=== PATIENT | male | born 1985 | race Caucasian/White ===

== ENCOUNTER 2017-02-13 16:19 | Inpatient (IN) | payer MEDICAID, OTHER ==
[2017-02-13] MEDS ORDERED: Sodium Chloride 0.9% 1,000 ML IV ONE ×3 (17:04→21:02)
--- NOTE | 2017-02-13 17:30 | C.PDOC ---
History Of Present Illness <Claudine Perrin - Last Filed: 02/13/17 18:11> <Korina Daigleerie - Last Filed: 02/13/17 21:57> A 31 year old male presents to the emergency room with complaints of abdominal pain for 3 days. Patient reports that the pain started when eating something spicy and became worst. Patient reports multiple episodes of vomiting and 1 episode of diarrhea that occurred today. Patient reports that he went to his PMD , who sent him to the ED. Patient denies any chest pain, shortness, of breath, fever, back pain, or any other complaints. (PiloKorinaIliana) <Claudine Perrin - Last Filed: 02/13/17 18:11> History Per: Patient History/Exam Limitations: no limitations Onset/Duration Of Symptoms: Days (3) Current Symptoms Are (Timing): Still Present Context: Food Severity: Mild Location Of Pain/Discomfort: Diffuse Radiation Of Pain To:: None Quality Of Discomfort: "Pain" Associated Symptoms: Vomiting, Diarrhea. denies: Fever, Chest Pain Exacerbating Factors: None Alleviating Factors: None Last Bowel Movement: Today Recent travel outside of the [place]: No <Iliana Daigle - Last Filed: 02/13/17 21:57> Time Seen by Provider: 02/13/17 16:51 Chief Complaint (Nursing): Abdominal Pain Past Medical History Reviewed: Historical Data, Nursing Documentation, Vital Signs Family History: States: Unknown Family Hx - Social History Hx Alcohol Use: No Hx Substance Use: No - Immunization History Hx Tetanus Toxoid Vaccination: No Hx Influenza Vaccination: No Hx Pneumococcal Vaccination: No <Iliana Daigle - Last Filed: 02/13/17 21:57> Vital Signs: Last Vital Signs Temp 97.3 F L 02/13/17 16:39 Pulse 118 H 02/13/17 19:23 Resp 34 H 02/13/17 19:23 BP 121/77 02/13/17 19:23 Pulse Ox 97 02/13/17 21:25 Review Of Systems Except As Marked, All Systems Reviewed And Found Negative. Constitutional: Negative for: Fever Cardiovascular: Negative for: Chest Pain Respiratory: Negative for: Shortness of Breath Gastrointestinal: Positive for: Vomiting, Abdominal Pain, Diarrhea Musculoskeletal: Negative for: Back Pain <Iliana Daigle - Last Filed: 02/13/17 21:57> Physical Exam - Physical Exam Appears: Non-toxic Skin: Pale Head: Atraumatic, Normacephalic Eye(s): bilateral: Normal Inspection Ear(s): Bilateral: Normal Nose: Normal, No Discharge Oral Mucosa: Dry Lips: Other (Whiteish crust on lower lip) Throat: Normal, No Erythema, No Exudate Neck: Normal ROM, Supple Cardiovascular: Rhythm Regular Respiratory: Normal Breath Sounds, No Rales, No Rhonchi, No Wheezing Gastrointestinal/Abdominal: No Soft (Firm), Tenderness (Diffuse tenderness), Guarding, No Rebound Rectal: No Heme Negative (Brown stool) Extremity: Normal ROM, No Tenderness Neurological/Psych: Oriented x3, Normal Speech <Iliana Daigle - Last Filed: 02/13/17 21:57> ED Course And Treatment - Laboratory Results Result Diagrams: 02/13/17 17:51 02/13/17 17:50 <AydinClaudine - Last Filed: 02/13/17 18:11> - Laboratory Results Result Diagrams: 02/13/17 17:51 02/13/17 17:50 O2 Sat by Pulse Oximetry: 97 - Other Rad Abdomen X-ray X-Ray: Interpreted by Me, Viewed By Me Interpretation: Right sided pleural effusion - CT Scan/US CT Abdomen & Pelvis Other Rad Studies (CT/US): Read By Radiologist, Radiology Report Reviewed CT/US Interpretation: CRITICAL RESULT: THIS REPORT CONTAINS FINDINGS THAT MAY BE CRITICAL TO PATIENT CARE. The. findings were verbally communicated via telephone conference with STEFANIE Daigle at 8:51 PM. EDT on 02/13/2017. The findings were acknowledged and understood. Initial Report created on 02/13/2017 8:49 PM Eastern Time ([place] & [place]). EXAM: CT Abdomen and Pelvis With Intravenous Contrast. CLINICAL HISTORY: 31 years old, male; Pain; Abdominal pain; Localized; Right lower quadrant. (rlq); Additional info: Rlq pain, guarding RO perf appy. TECHNIQUE: Axial computed tomography images of the abdomen and pelvis with intravenous. contrast. This CT exam was performed using one or more of the following dose reduction. techniques: automated exposure control, adjustment of the mA and/or kV according to patient size,. and/or use of iterative reconstruction technique. Coronal and sagittal reformatted images were. created and reviewed. CONTRAST: 100 mL of visipaque 320 administered intravenously. COMPARISON: No relevant prior studies available. FINDINGS: Lower thorax: Small right pleural effusion. Infiltrates or atelectasis the lung bases, most prominent in the right lower lobe. ABDOMEN : Liver: Unremarkable. No mass. Gallbladder and bile ducts: Unremarkable. No calcified stones. No ductal dilation. Pancreas: Unremarkable. No mass. No ductal dilation. Spleen: Unremarkable. No splenomegaly. Adrenals: Unremarkable. No mass. Kidneys and ureters: Unremarkable. No solid mass. No hydronephrosis. Stomach and bowel: Dilated small bowel loops in the abdomen with air/contrast levels. No transition. point to suggest mechanical obstruction. Appendix: Mucosal thickening in the dilated appendix which measures 1.6 cm in diameter. There is. free fluid in free air adjacent to the appendix consistent with a ruptured acute appendicitis. PELVIS: Bladder: There is a mild thickening of the bladder wall which may be due to cystitis. Reproductive: Unremarkable as visualized. ABDOMEN and PELVIS: Intraperitoneal space: See above. Bones/joints: No acute fracture. No dislocation. Soft tissues: Unremarkable. Vasculature: Unremarkable. No abdominal aortic aneurysm. Lymph nodes: Unremarkable. No enlarged lymph nodes. IMPRESSION: 1. Mucosal thickening in the dilated appendix which measures 1.6 cm in diameter. There is. free fluid in free air adjacent to the appendix consistent with a ruptured acute appendicitis. 2. Small right pleural effusion. 3. Infiltrates or atelectasis the lung bases, most prominent in the right lower lobe. 4. Dilated small bowel loops in the abdomen with air/contrast levels. No transition point to suggest. mechanical obstruction. This is most likely due to adynamic ileus. 5. There is a mild thickening of the bladder wall which may be due to cystitis. Progress Note: Plan: - EKG - CT Abdomen & Pelvis - Abdomen X-ray - Labs - Zofran , Zosyn, Morphine & Protonix. X-ray was used to rule out perforation. Results showed small pleural effusion. Patient has a rectal temperature of 101.5. Lactic acid was normal. Dr. Perrin spoke with surgical first assistant who requested CT with IV and po contrast. Ct was consistant with the ruptures acute appendicitis. patient will be admitted to the hospitalist service as per surgeon request. Flagyl IV started. - Physician Consult Information Physician Contacted: Chris B Dilip Outcome Of Conversation: Admit to the Hospitalist service, ID consult. <Iliana Daigle - Last Filed: 02/13/17 21:57> Supervising Attending Note - Supervising Attending Note The Documented history was done by the: Physician Hemstitcher The documented physical exam was done by the: Physician Hemstitcher The documented procedures were done by the: Physician Hemstitcher - Attestation: I have personally seen and examined this patient.: Yes I have fully participated in the care of the patient.: Yes I have reviewed all pertinent clinical information: Yes <Claudine Perrin - Last Filed: 02/13/17 18:11> <PiloIliana - Last Filed: 02/13/17 21:57> - Notes: Notes:: ABD PAIN X 3 DAYS. +FEVER REFERRED PMD FOR POSSIBLE RUPTURED APPY. EXAM ABOVE. RO FREE AIR, PREOP, SURG CONSULT (Claudine Perrin) Progress - Data Reviewed Data Reviewed: Lab, Diagnostic imaging, EKG, Old records - Critical Care Citical Care: Excluding Proc Time Critical Care Time: 120 minutes - Continuity of Care Discussed patient case with:: Patient Discussed pt. case with healthcare management consultant/specialty: General Surgery <Claudine Perrin - Last Filed: 02/13/17 18:11> <Korina Daigleerie - Last Filed: 02/13/17 21:57> - Re-Evaluation Re-evaluation Note: 02/13/17 18:13 D/W SURG RESIDENT AWARE OF ER FINDINGS. REQUESTING CT W PO/IV CONTRAST. CT PENDING (Claudine Perrin) Disposition <Claudine Perrin - Last Filed: 02/13/17 18:11> - Disposition Disposition Time: 21:22 <Korina Daigleerie - Last Filed: 02/13/17 21:57> - Disposition Disposition: HOSPITALIZED Condition: GUARDED - Clinical Impression Clinical Impression: Acute appendicitis with rupture <Claudine Perrin - Last Filed: 02/13/17 18:11> - Scribe Statement The provider has reviewed the documentation as recorded by the Scribe <Korina Daigleerie - Last Filed: 02/13/17 21:57> - Scribe Statement Dirk Braswell Provider Scribe Attestation: All medical record entries made by the Scribe were at my direction and personally dictated by me. I have reviewed the chart and agree that the record accurately reflects my personal performance of the history, physical exam, medical decision making, and the department course for this patient. I have also personally directed, reviewed, and agree with the discharge instructions and disposition. (Iliana Daigle) Decision To Admit <Claudine Perrin - Last Filed: 02/13/17 18:11> - Pt Status Changed To: Hospital Disposition Of: Inpatient - Admit Certification Admit to Inpatient:: After my assessment, the patient will require hospitalization for at least two midnights. This is because of the severity of symptoms shown, intensity of services needed, and/or the medical risk in this patient being treated as an outpatient. - InPatient: Physician Admission Certification:: Patient with ruptured appendicitis will need IV antibiotics and surgical treatment. Patient will stay in the hospital for more than 2 days. - . Bed Request Type: Regular Admitting Physician: Avi Gaytan <Iliana Daigle - Last Filed: 02/13/17 21:57> - . Patient Diagnosis: Acute appendicitis with rupture
[2017-02-13 17:44] LABS: BASO % 0.1 % (0.0-2.0); LYMPH # 0.7 K/uL (1.0-4.3); LYMPH % 4.6 % (20.0-40.0); MEAN CORPUSCULAR HEMOGLOBIN 28.4 pg (27.0-31.0); MEAN CORPUSCULAR HGB CONC 33.1 g/dL (33.0-37.0); MEAN PLATELET VOLUME 7.9 fL (7.2-11.7); MONO # 0.8 K/uL (0.0-0.8); MONO % 5.3 % (0.0-10.0); PLATELET COUNT 291 K/uL (130-400); RED CELL DISTRIBUTION WIDTH 13.2 % (11.5-14.5); WHITE BLOOD COUNT 14.1 K/uL (4.8-10.8)
[2017-02-13 17:50] LABS: VENOUS BLOOD GAS BASE EXCESS 1.5 mmol/L (0.0-2.0); VENOUS BLOOD GAS PCO2 49 mmHg (40-60); VENOUS BLOOD PH 7.36 (7.32-7.43)
[2017-02-13 17:52] LABS: CHLORIDE 89 mmol/L (98-107)
[2017-02-13 17:53] LABS: POTASSIUM 4.1 mmol/L (3.6-5.2); SODIUM 131 mmol/L (132-148)
[2017-02-13 17:55] LABS: INR 1.7
[2017-02-13 17:55] LABS: ALB/GLOB RATIO 1.3 (1.0-2.1); ALKALINE PHOSPHATASE 70 U/L (38-126); AST/SGOT 16 U/L (17-59); BLOOD UREA NITROGEN 23 mg/dL (9-20); CARBON DIOXIDE 27 mmol/L (22-30); GFR AFRICAN-AMERICAN > 60; TOTAL PROTEIN 7.3 g/dL (6.3-8.3)
[2017-02-13 17:56] LABS: ALT/SGPT 12 U/L (21-72); CALCIUM 8.9 mg/dl (8.6-10.4); GLUCOSE,RANDOM 143 mg/dL (75-110)
[2017-02-13] MEDS ORDERED: Piperacillin/Tazobact 3.375 gm 100 ML IV STA (18:00)
[2017-02-13] MEDS ORDERED: Iodixanol 320 MG/ML 100 ML BOTTLE IV ONE (18:11)
[2017-02-13] MEDS ORDERED: Iohexol 240 (50 ml) PO ONE (18:12)
[2017-02-13] MEDS ORDERED: Iohexol 240 (50 ml) ONE (18:20)
[2017-02-13] MEDS ORDERED: Sodium Chloride 0.9% 1,000 ML ONE ×3 (18:21→21:36)
[2017-02-13] MEDS ORDERED: Piperacillin/Tazobact 3.375 gm 100 ML IVPB ONE (18:42)
[2017-02-13 18:43] LABS: BASOPHIL 1 % (0-2); METAMYELOCYTE 6 % (0-0); MYELOCYTE 2 % (0-0); NEUTROPHIL 54 % (50-75); TOTAL CELLS COUNTED 100
[2017-02-13 18:56] LABS: RBC URINE 6 /hpf (0-3); URINE BILIRUBIN NEGATIVE (NEGATIVE); URINE BLOOD 1+ (NEGATIVE); URINE COLOR YELLOW (YELLOW); URINE GLUCOSE (UA) NORMAL (Normal); URINE KETONE TRACE mg/dL (NEGATIVE); URINE LEUKOCYTE ESTERASE NEG Leu/uL (Negative); URINE PROTEIN 2+ mg/dL (NEGATIVE); URINE UROBILINOGEN NORMAL mg/dL (0.2-1.0); WBC URINE 4 /hpf (0-5)
[2017-02-13] MEDS ORDERED: Morphine 4 MG/ML VIAL ONE (19:26)
[2017-02-13] MEDS ORDERED: metroNIDAZOLE IV 500 mg/100 ml 100 ML IV STA (21:01)
[2017-02-13] MEDS ORDERED: metroNIDAZOLE IV 500 mg/100 ml 100 ML ONE (21:36)
--- NOTE | 2017-02-13 21:46 | CP.PCM.CON ---
<Nina Vanegas - Last Filed: 02/13/17 21:44> History of Present Illness - History of Present Illness History of Present Illness: Surgery: Dr. Cherry CC: abdominal pain HPI: Patient is a 31 y/o male who presents complaining of RLQ abdominal pain that started on Sunday. Patient states the pain was sharp in nature located in the RLQ and did not radiate. Since Sunday the pain has progressively gotten worse. He report 2 episdoes of vomiting, gastric contents, on Sunday. He reports having fever and chills but did not take temperature. He states he had diarrhea, nonbloody that started Sunday as well. He reports poor appetite associated w/ pain. He denies having symptoms similar in the past. PMH: none PSH: none NKDA Social: denies etoh, tobacco or drug use. Review of Systems - Constitutional Constitutional: Chills, Fever. absent: Headache, Weight Loss - EENT Eyes: absent: Blurred Vision, Change in Vision Ears: absent: Disequilibrium, Dizziness Nose/Mouth/Throat: absent: Nasal Trauma, Nose Pain - Cardiovascular Cardiovascular: Diaphoresis. absent: Chest Pain, Dyspnea - Respiratory Respiratory: absent: Cough, Wheezing - Gastrointestinal Gastrointestinal: Abdominal Pain, Loose Stools, Nausea, Vomiting. absent: Constipation, Hematochezia - Genitourinary Genitourinary: absent: Hematuria, Pyuria - Musculoskeletal Musculoskeletal: absent: Arthralgias, Back Pain - Integumentary Integumentary: absent: Sores, Jaundice - Neurological Neurological: absent: Dizziness, Syncope - Psychiatric Psychiatric: absent: Anxiety, Depression - Endocrine Endocrine: absent: Polydipsia, Polyphagia - Hematologic/Lymphatic Hematologic: absent: Easy Bleeding, Easy Bruising Past Patient History - Infectious Disease Hx of Infectious Diseases: None - Past Social History Smoking Status: Never Smoked - PSYCHIATRIC Hx Substance Use: No - SURGICAL HISTORY Hx Surgeries: No - ANESTHESIA Hx Anesthesia: No Meds Allergies/Adverse Reactions: Allergies Allergy/AdvReac Type Severity Reaction Status Date / Time No Known Allergies Allergy Verified 02/13/17 16:39 - Medications Medications: Current Medications Sodium Chloride (Sodium Chloride 0.9%) 1,000 mls @ 125 mls/hr IV .Q8H ONE Stop: 02/14/17 05:01 Last Admin: 02/13/17 21:42 Dose: 125 mls/hr Physical Exam - Constitutional Appears: Non-toxic, No Acute Distress - Head Exam Head Exam: ATRAUMATIC, NORMOCEPHALIC - Eye Exam Eye Exam: EOMI, Normal appearance - ENT Exam ENT Exam: Mucous Membranes Dry - Respiratory Exam Respiratory Exam: NORMAL BREATHING PATTERN. absent: Respiratory Distress - Cardiovascular Exam Cardiovascular Exam: REGULAR RHYTHM. absent: Tachycardia - GI/Abdominal Exam GI & Abdominal Exam: Firm, Guarding (voluntarily RLQ), Tenderness (RLQ and LLQ, more tender in LLQ ). absent: Distended, Rebound - Extremities Exam Extremities exam: Positive for: normal inspection. Negative for: calf tenderness - Back Exam Back exam: absent: CVA tenderness (L), CVA tenderness (R) - Neurological Exam Neurological exam: Alert, Oriented x3 - Psychiatric Exam Psychiatric exam: Normal Affect, Normal Mood - Skin Skin Exam: Dry, Intact, Normal Color, Warm Results - Vital Signs Recent Vital Signs: Last Vital Signs Temp 97.3 F L 02/13/17 16:39 Pulse 118 H 02/13/17 19:23 Resp 34 H 02/13/17 19:23 BP 121/77 02/13/17 19:23 Pulse Ox 97 02/13/17 21:25 - Labs Result Diagrams: 02/13/17 17:51 02/13/17 17:50 - Impressions Impression: CT scan findings consistent w/ acute perforated appendicitis, localized free fluid and ja-appendiceal air Assessment & Plan - Assessment and Plan (Free Text) Assessment: 31 y/o male w/ acute perforated appendicitis Plan: -IV abx -IV fluids -NPO -Pain control -ID consult -IS use -serial abdominal exams -monitor strict Is and Os -VS Q4hrs -Pepcid/SCDs for prophylaxis -d/w Dr. Cherry AKWhite PGY1 <Chris Cherry - Last Filed: 02/18/17 11:50> Meds - Medications Medications: Current Medications Acetaminophen (Tylenol 325mg Tab) 650 mg PO Q6 PRN PRN Reason: Fever >100.4 F Last Admin: 02/15/17 19:08 Dose: 650 mg Famotidine (Pepcid) 20 mg IVP DAILY [facility] Last Admin: 02/18/17 09:59 Dose: 20 mg Piperacillin Sod/Tazobactam Sod (Zosyn 3.375 Gm Iv Premix) 50 mls @ 100 mls/hr IVPB Q6H [facility] Last Admin: 02/18/17 06:13 Dose: 100 mls/hr Potassium Chloride/Dextrose/Sod Cl (Potassium Chl 40 Meq In D5-1/2ns) 1,000 mls @ 125 mls/hr IV .Q8H [facility] Last Admin: 02/18/17 05:40 Dose: 125 mls/hr Morphine Sulfate (Morphine) 4 mg IVP Q4H PRN PRN Reason: Pain, severe (8-10) Morphine Sulfate (Morphine) 2 mg IVP Q4 PRN PRN Reason: Pain, moderate (4-7) Last Admin: 02/18/17 05:38 Dose: 2 mg Ondansetron HCl (Zofran Inj) 4 mg IVP Q4 PRN PRN Reason: Nausea/Vomiting Potassium Chloride (K-Dur 20 Meq Er Tab) 40 meq PO DAILY [facility] Last Admin: 02/18/17 10:00 Dose: 40 meq Saccharomyces Boulardii (Florastor) 250 mg PO BID [facility] Last Admin: 02/18/17 09:59 Dose: 250 mg Results - Vital Signs Recent Vital Signs: Last Vital Signs Temp 98.6 F 02/18/17 08:03 Pulse 86 02/18/17 08:03 Resp 20 02/18/17 08:03 BP 99/64 L 02/18/17 08:03 Pulse Ox 98 02/18/17 08:03 - Labs Result Diagrams: 02/18/17 06:15 02/18/17 06:15 Labs: Laboratory Results - last 24 hr 02/18/17 06:15 WBC 9.3 RBC 4.12 L Hgb 11.8 L Hct 35.3 MCV 85.8 MCH 28.6 MCHC 33.4 RDW 13.5 Plt Count 315 MPV 7.3 Neut % (Auto) 75.3 H Lymph % (Auto) 12.9 L [place] % (Auto) 10.7 H Eos % (Auto) 0.8 Baso % (Auto) 0.3 Neut # 7.0 Lymph # 1.2 [place] # 1.0 H Eos # 0.1 Baso # 0.0 Sodium 136 Potassium 3.8 Chloride 95 L Carbon Dioxide 28 Anion Gap 16 BUN 4 L Creatinine 0.6 L Est GFR ( Amer) > 60 Est GFR (Non-Af Amer) > 60 Random Glucose 108 Calcium 8.5 L Phosphorus 3.0 Magnesium 2.1 Total Bilirubin 0.4 AST 26 ALT 22 Alkaline Phosphatase 62 Total Protein 6.2 L Albumin 3.1 L Globulin 3.1 Albumin/Globulin Ratio 1.0 Attending/Attestation - Attestation I have personally seen and examined this patient.: Yes I have fully participated in the care of the patient.: Yes I have reviewed all pertinent clinical information: Yes Notes (Text): 02/18/17 11:49 Pt was seen and examined at bedside on 02/13/17 Agree with above note and assessment. Pt with Acute Phlagmoneous Appendicitis with localized perforation and abscess C/w IV abx No need for surgical intervention at present Plan d.w pt in detail Risk and benefit explained in detail.
[2017-02-13] MEDS ORDERED: Lactated Ringer's 1,000 ML IV ONE (21:49)
[2017-02-13] MEDS ORDERED: Morphine 4 MG/ML VIAL IVP PRN (21:50)
[2017-02-13] MEDS ORDERED: Piperacillin/Tazobact 3.375 GM in Sodium Chloride 100 ML IVPB SCH (22:00)
--- NOTE | 2017-02-13 22:44 | CP.PCM.HP ---
<George Hogan - Last Filed: 02/14/17 02:59> History of Present Illness - History of Present Illness History of Present Illness: CC: Chest pain/SOB/RLE pain HPI: Patient is a 31 year old [place] male, who denies PMHx, who was sent up to the ED by his PMD for abdominal pain. He states that the abdominal pain started this past Sunday in the evening. Patient describes the pain as a "constant aching, with occasional knife-like stabs of pain" located "all over his abdomen " but worst in the RLQ, with no radiation to the back. He states the pain began as a mild 2-3/10 on Sunday, but by this morning was a 10/10 on the pain scale. He report one episode of non-bilious, non-bloody vomiting on Sunday, but denies any subsequent episodes despite constant nausea. Pt denies wanting to eat because it worsens his pain, and admits having eaten only a banana and water for the past two days. He admits subjective fever and chills that began Sunday. He states he had one episode non-bloody diarrhea today. He denies previous symptoms. He denies chest pain, palpitations, shortness of breath, headache, dysuria, or constipation. PMHx: denies PSHx: denies Allergies: dneies Fam Hx: father- HTN SHx: denies ever using tobacco products, denies recent alcohol or illicit drug use; lives in [place] with family, currently unemployed PMD: Dr. Marques Present on Admission - Present on Admission Any Indicators Present on Admission: No History of DVT/PE: No History of Uncontrolled Diabetes: No Urinary Catheter: No Decubitus Ulcer Present: No Review of Systems - Constitutional Constitutional: Chills, Fever - EENT Eyes: absent: Blurred Vision Ears: absent: Decreased Hearing - Cardiovascular Cardiovascular: absent: Chest Pain, Chest Pain at Rest, Dyspnea, Dyspnea on Exertion - Respiratory Respiratory: absent: Dyspnea, Dyspnea on Exertion - Gastrointestinal Gastrointestinal: Abdominal Pain (RLQ), Diarrhea (one episode, non-blodoy today) , Nausea, Vomiting (one episode sunday) - Genitourinary Genitourinary: absent: Dysuria - Musculoskeletal Musculoskeletal: absent: Back Pain, Numbness, Tingling - Integumentary Integumentary: absent: Dry Skin, Swelling - Neurological Neurological: absent: Numbness, Tingling, Weakness - Psychiatric Psychiatric: absent: Anxiety, Depression Past Patient History - Infectious Disease Hx of Infectious Diseases: None - Past Social History Smoking Status: Never Smoked - PSYCHIATRIC Hx Substance Use: No - SURGICAL HISTORY Hx Surgeries: No - ANESTHESIA Hx Anesthesia: No Meds Allergies/Adverse Reactions: Allergies Allergy/AdvReac Type Severity Reaction Status Date / Time No Known Allergies Allergy Verified 02/13/17 16:39 Physical Exam - Constitutional Appears: Non-toxic, No Acute Distress - Head Exam Head Exam: ATRAUMATIC, NORMAL INSPECTION, NORMOCEPHALIC - Eye Exam Eye Exam: EOMI Pupil Exam: PERRL - ENT Exam ENT Exam: Mucous Membranes Moist - Neck Exam Neck exam: Positive for: Normal Inspection - Respiratory Exam Respiratory Exam: Clear to Auscultation Bilateral, NORMAL BREATHING PATTERN - Cardiovascular Exam Cardiovascular Exam: REGULAR RHYTHM, +S1, +S2 - GI/Abdominal Exam GI & Abdominal Exam: Firm, Guarding (RLQ), Normal Bowel Sounds, Rebound, Soft, Tenderness (RLQ). absent: Distended - Extremities Exam Extremities exam: Positive for: normal inspection, pedal pulses present. Negative for: pedal edema, tenderness - Back Exam Back exam: absent: CVA tenderness (L), CVA tenderness (R) - Neurological Exam Neurological exam: Alert, CN II-XII Intact, Oriented x3 - Psychiatric Exam Psychiatric exam: Normal Affect, Normal Mood - Skin Skin Exam: Normal Color, Warm Results - Vital Signs Recent Vital Signs: Last Vital Signs Temp 97.9 F 02/13/17 22:26 Pulse 112 H 02/13/17 22:26 Resp 20 02/13/17 22:26 BP 134/79 02/13/17 22:26 Pulse Ox 97 02/13/17 22:26 - Labs Result Diagrams: 02/13/17 17:51 02/13/17 17:50 Assessment & Plan - Assessment and Plan (Free Text) Assessment: 31 yo Male with Perforated Appendicitis Abdominal Pain Diffuse, but worst in RLQ (with guarding, pain at McBurney point) Admit to telemetry NPO diet CT A/P w/ PO/IV (02/13/17): Dilated appendix, free fluid/air adjacent to appendix c/w ruptured acute appendicitis. Small right pleural effusion. Infiltrates/atelectasis in lung bases, most prominent on right. Dilated small bowel loops with air/fluid contrast levels. No transition point appreciated to suggest mechanical obstruction - most likely ileus. (see full report) Abd xray: no acute perforation. Stool occult negative Flagyl 500mg IV ONCE in ED Zosyn 3.375 gm IV Q6H Zofran 4mg IV Q4H NS @ 150 Surgical consult: Dr. Cherry, help appreciated - Morphine 2mg (moderate), 4mg (severe) IV Q4H PRN for pain - Typical course is IV abx, then surgery in 4-6 weeks Infectious disease consult, Dr. Lacey: - Recommend Zosyn 3.375 IV Q6H Sepsis WBC: 14.1 on admission, Tachycardic, Febrile, Tachypnic Source: perforated appendicitis Lactic acid: 2.1 - f/u repeat lactic acid in AM f/u Procalcitonin f/u blood and urine culture Flagyl 500mg IV ONCE in ED Zosyn 3.375 gm IV Q6H Monitor for hypotension -consider ICU if eval if hypotensive Infiltrate/atelectasis CT A/P: Infiltrates/atelectasis in lung bases, most prominent on right. Zosyn 3.375 gm IV Q6H Incentive spirometer Elevated BUN/Creatinine 23/1.1 on admission Pt dehydrated/anorexic for several days before Monitor after hydration Fever Tylenol 325 mg PO Q6h PRN Abnormal UA UA (02/13/17): protein 2+, blood 1+, RBC 6, LE negative, nitrate negative Pt admits dehydration/anorexia recently Repeat UA after hydration Prophylaxis SCDs Pepcid 20mg IV daily <Avi Gaytan - Last Filed: 02/14/17 06:19> Results - Vital Signs Recent Vital Signs: Last Vital Signs Temp 98.8 F 02/14/17 06:00 Pulse 113 H 02/14/17 06:00 Resp 20 02/14/17 06:00 BP 107/60 02/14/17 06:00 Pulse Ox 100 02/14/17 06:00 - Labs Result Diagrams: 02/13/17 17:51 02/13/17 17:50 Assessment & Plan - Date & Time Date: 02/14/17 (I have seen and examined the patient. I agree with the findings and plan of care as documented by Dr. Hogan. Patient with perforated appendicitis. Meets SIRS criteria. Improved heart rate and BP with fluid boluses. Received Zosyn and Flagyl in ED. Consult to ID. Continue Zosyn. Consult to Surgery appreciated. Monitor for acute changes.) Time: 06:17 Attending/Attestation - Attestation I have personally seen and examined this patient.: Yes I have fully participated in the care of the patient.: Yes I have reviewed all pertinent clinical information: Yes
[2017-02-14] MEDS: Piperacill/Tazo 3.375gm in Dex 50 ML IVPB SCH ×4 (00:44→19:06)
[2017-02-14] MEDS ORDERED: Sodium Chloride 0.9% 1,000 ML IV ONE (01:36)
[2017-02-14 06:37] LABS: CHLORIDE 97 mmol/L (98-107)
[2017-02-14 06:38] LABS: SODIUM 138 mmol/L (132-148)
[2017-02-14 06:40] LABS: CARBON DIOXIDE 28 mmol/L (22-30); GFR AFRICAN-AMERICAN > 60
[2017-02-14 06:41] LABS: ALB/GLOB RATIO 1.2 (1.0-2.1); ALKALINE PHOSPHATASE 66 U/L (38-126); ALT/SGPT 17 U/L (21-72); AST/SGOT 16 U/L (17-59); BILIRUBIN,TOTAL 1.2 mg/dL (0.2-1.3); BLOOD UREA NITROGEN 12 mg/dL (9-20); CALCIUM 8.3 mg/dl (8.6-10.4); GLUCOSE,RANDOM 106 mg/dL (75-110); TOTAL PROTEIN 6.1 g/dL (6.3-8.3)
[2017-02-14 07:34] LABS: RBC URINE 3 /hpf (0-3); URINE BACTERIA RARE (<OCC); URINE BILIRUBIN NEGATIVE (NEGATIVE); URINE BLOOD 1+ (NEGATIVE); URINE COLOR Yellow (YELLOW); URINE GLUCOSE (UA) NORMAL (Normal); URINE KETONE TRACE mg/dL (NEGATIVE); URINE LEUKOCYTE ESTERASE NEG Leu/uL (Negative); URINE PROTEIN 1+ mg/dL (NEGATIVE); URINE UROBILINOGEN NORMAL mg/dL (0.2-1.0); WBC URINE 3 /hpf (0-5)
--- NOTE | 2017-02-14 08:43 | CT ---
PROCEDURE: CT Abdomen and Pelvis with contrast HISTORY: Right lower quadrant abdominal pain COMPARISON: None. TECHNIQUE: Axial computed tomographic images of the abdomen and pelvis were performed with intravenous contrast. Subsequently, sagittal and coronal reformatted images were obtained. 100 cc of Visipaque 320 intravenous contrast was administered. Radiation dose: Total exam DLP = 418 mGy-cm. FINDINGS: LOWER THORAX: Small right pleural effusion. Infiltrates or atelectasis at the lung bases, more prominent in the right lower lobe. LIVER: Unremarkable. No gross lesion or ductal dilatation. GALLBLADDER AND BILE DUCTS: Unremarkable. PANCREAS: Unremarkable. No gross lesion or ductal dilatation. SPLEEN: Unremarkable. ADRENALS: Unremarkable. No mass. KIDNEYS AND URETERS: Unremarkable. No hydronephrosis. No solid mass. VASCULATURE: Unremarkable. No aortic aneurysm. BOWEL: Dilated small bowel loops in the abdomen with air contrast levels. No gross transition point to suggest mechanical obstruction. APPENDIX: Mucosal thickening in the dilated appendix which measures 1.6 centimeters in diameter. Free fluid and free air adjacent to the appendix consistent with a ruptured acute appendicitis. PERITONEUM: Unremarkable. No free fluid. No free air. LYMPH NODES: Unremarkable. No enlarged lymph nodes. BLADDER: Mucosal thickening of the urinary bladder wall which may be secondary to a cystitis. REPRODUCTIVE: Unremarkable. BONES: No acute fracture. OTHER FINDINGS: None. IMPRESSION: Mucosal thickening in a dilated appendix which measures 1.6 centimeters in diameter. Free fluid and free air adjacent to the appendix suggestive for a ruptured acute appendicitis. Small right pleural effusion. Infiltrates or atelectasis at the lung bases, more prominent in the right lower lobe. Dilated small bowel loops in the abdomen with air contrast levels. No transition point to suggest mechanical obstruction. This may be secondary to an an adynamic ileus. Mild thickening of the urinary bladder wall which may be secondary to a cystitis. These findings were preliminarily reported at 8:49 p.m. on 02/13/[address] Arcenio Russell from [employer].
--- NOTE | 2017-02-14 09:12 | RAD ---
HISTORY: abdominal pain COMPARISON: No prior. FINDINGS: BOWEL: Mildly dilated small bowel loops central abdomen. Nonspecific. Cannot rule out early obstruction. Please correlate clinically and follow-up advised. No masses or abnormal calcifications. BONES: Normal. OTHER FINDINGS: Small right pleural effusion incidentally noted. IMPRESSION: Mildly dilated small bowel loop in central abdomen. Nonspecific. Followup to rule out mechanical bowel obstruction. Small right pleural effusion.
--- NOTE | 2017-02-14 11:48 | CP.PCM.PN ---
<PisanoMamadou tilley - Last Filed: 02/14/17 11:57> Subjective - Date & Time of Evaluation Date of Evaluation: 02/14/17 Time of Evaluation: 08:30 - Subjective Subjective: General Surgery Pt S&E, NAEO. Febrile to 101.2 at 2 am. States his pain has greatly improved. No other C/O. Objective - Vital Signs/Intake and Output Vital Signs (last 24 hours): Temp Pulse Resp BP Pulse Ox 100.1 F H 123 H 20 107/57 L 100 02/14/17 10:41 02/14/17 10:41 02/14/17 10:41 02/14/17 10:41 02/14/17 10:41 Intake and Output: 02/14/17 02/14/17 06:59 18:59 Intake Total 1150 Output Total 700 Balance 450 - Medications Medications: Current Medications Acetaminophen (Tylenol 325mg Tab) 650 mg PO Q6 PRN PRN Reason: Fever >100.4 F Last Admin: 02/14/17 00:59 Dose: 650 mg Famotidine (Pepcid) 20 mg IVP DAILY [facility] Last Admin: 02/14/17 10:42 Dose: 20 mg Piperacillin Sod/Tazobactam Sod (Zosyn 3.375 Gm Iv Premix) 50 mls @ 100 mls/hr IVPB Q6H [facility] Last Admin: 02/14/17 06:07 Dose: 100 mls/hr Influenza Virus Vaccine (Afluria) 45 mcg IM .ONCE ONE Stop: 02/15/17 10:01 Morphine Sulfate (Morphine) 4 mg IVP Q4H PRN PRN Reason: Pain, severe (8-10) Morphine Sulfate (Morphine) 2 mg IVP Q4 PRN PRN Reason: Pain, moderate (4-7) Last Admin: 02/14/17 10:43 Dose: 2 mg Ondansetron HCl (Zofran Inj) 4 mg IVP Q4 PRN PRN Reason: Nausea/Vomiting Pneumococcal Polyvalent Vaccine (Pneumovax 23 Vaccine) 0.5 ml IM .ONCE ONE Stop: 02/15/17 10:01 - Labs Labs: 02/14/17 06:12 PT 19.7 SECONDS (9.7-12.2) H 02/13/17 17:56 INR 1.7 02/13/17 17:56 APTT 30 SECONDS (21-34) 02/13/17 17:56 - Constitutional Appears: Well, No Acute Distress - Head Exam Head Exam: ATRAUMATIC, NORMOCEPHALIC - Eye Exam Eye Exam: EOMI. absent: Scleral icterus - Respiratory Exam Respiratory Exam: Clear to Ausculation Bilateral, NORMAL BREATHING PATTERN. absent: Accessory Muscle Use - Cardiovascular Exam Cardiovascular Exam: Tachycardia, REGULAR RHYTHM, +S1, +S2 - GI/Abdominal Exam GI & Abdominal Exam: Soft, Tenderness (most in RLQ). absent: Distended, Firm, Guarding, Rigid, Rebound - Neurological Exam Neurological Exam: Alert, Awake - Skin Skin Exam: Dry, Intact, Warm Assessment and Plan - Assessment and Plan (Free Text) Assessment: 31M with perforated appendicitis Plan: - Continue IV abx -F/U ID consult No immediate surgery planned. Will need interval appendectomy. Will D/W Dr. Cherry. PGY3 <Chris Cherry - Last Filed: 02/18/17 11:53> Objective - Vital Signs/Intake and Output Vital Signs (last 24 hours): Temp Pulse Resp BP Pulse Ox 98.6 F 86 20 99/64 L 98 02/18/17 08:03 02/18/17 08:03 02/18/17 08:03 02/18/17 08:03 02/18/17 08:03 Intake and Output: 02/18/17 02/18/17 06:59 18:59 Intake Total 2675 Output Total 1 Balance 2674 - Medications Medications: Current Medications Acetaminophen (Tylenol 325mg Tab) 650 mg PO Q6 PRN PRN Reason: Fever >100.4 F Last Admin: 02/15/17 19:08 Dose: 650 mg Famotidine (Pepcid) 20 mg IVP DAILY [facility] Last Admin: 02/18/17 09:59 Dose: 20 mg Piperacillin Sod/Tazobactam Sod (Zosyn 3.375 Gm Iv Premix) 50 mls @ 100 mls/hr IVPB Q6H [facility] Last Admin: 02/18/17 06:13 Dose: 100 mls/hr Potassium Chloride/Dextrose/Sod Cl (Potassium Chl 40 Meq In D5-1/2ns) 1,000 mls @ 125 mls/hr IV .Q8H [facility] Last Admin: 02/18/17 05:40 Dose: 125 mls/hr Morphine Sulfate (Morphine) 4 mg IVP Q4H PRN PRN Reason: Pain, severe (8-10) Morphine Sulfate (Morphine) 2 mg IVP Q4 PRN PRN Reason: Pain, moderate (4-7) Last Admin: 02/18/17 05:38 Dose: 2 mg Ondansetron HCl (Zofran Inj) 4 mg IVP Q4 PRN PRN Reason: Nausea/Vomiting Potassium Chloride (K-Dur 20 Meq Er Tab) 40 meq PO DAILY [facility] Last Admin: 02/18/17 10:00 Dose: 40 meq Saccharomyces Boulardii (Florastor) 250 mg PO BID [facility] Last Admin: 02/18/17 09:59 Dose: 250 mg - Labs Labs: 02/18/17 06:15 02/18/17 06:15 PT 19.7 SECONDS (9.7-12.2) H 02/13/17 17:56 INR 1.7 02/13/17 17:56 APTT 30 SECONDS (21-34) 02/13/17 17:56 Attending/Attestation - Attestation I have personally seen and examined this patient.: Yes I have fully participated in the care of the patient.: Yes I have reviewed all pertinent clinical information, including history, physical exam and plan: Yes Notes (Text): 02/18/17 11:52 Pt was seen and examined at bedside on 02/14/17 Agree with above note and assessment. Pt is same clinically C/w IV abx Will need CT scan if continue to spike temp. Plan d.w pt in detail.
--- NOTE | 2017-02-14 12:40 | CP.PCM.PN ---
<Keon Harding - Last Filed: 02/14/17 12:31> Subjective - Date & Time of Evaluation Date of Evaluation: 02/14/17 Time of Evaluation: 12:31 - Subjective Subjective: PGY-1 note for medicine service Pt seen and examined at bedside. Pt complains of persistent pain in the RLQ. He also states that he had fevers and chills overnight. Denies chest pain, sob, nausea or vomiting. Objective - Vital Signs/Intake and Output Vital Signs (last 24 hours): Temp Pulse Resp BP Pulse Ox 100.1 F H 123 H 20 107/57 L 100 02/14/17 10:41 02/14/17 10:41 02/14/17 10:41 02/14/17 10:41 02/14/17 10:41 Intake and Output: 02/14/17 02/14/17 06:59 18:59 Intake Total 1150 Output Total 700 Balance 450 - Medications Medications: Current Medications Acetaminophen (Tylenol 325mg Tab) 650 mg PO Q6 PRN PRN Reason: Fever >100.4 F Last Admin: 02/14/17 00:59 Dose: 650 mg Famotidine (Pepcid) 20 mg IVP DAILY [facility] Last Admin: 02/14/17 10:42 Dose: 20 mg Piperacillin Sod/Tazobactam Sod (Zosyn 3.375 Gm Iv Premix) 50 mls @ 100 mls/hr IVPB Q6H [facility] Last Admin: 02/14/17 06:07 Dose: 100 mls/hr Influenza Virus Vaccine (Afluria) 45 mcg IM .ONCE ONE Stop: 02/15/17 10:01 Morphine Sulfate (Morphine) 4 mg IVP Q4H PRN PRN Reason: Pain, severe (8-10) Morphine Sulfate (Morphine) 2 mg IVP Q4 PRN PRN Reason: Pain, moderate (4-7) Last Admin: 02/14/17 10:43 Dose: 2 mg Ondansetron HCl (Zofran Inj) 4 mg IVP Q4 PRN PRN Reason: Nausea/Vomiting Pneumococcal Polyvalent Vaccine (Pneumovax 23 Vaccine) 0.5 ml IM .ONCE ONE Stop: 02/15/17 10:01 - Labs Labs: 02/14/17 06:12 PT 19.7 SECONDS (9.7-12.2) H 02/13/17 17:56 INR 1.7 02/13/17 17:56 APTT 30 SECONDS (21-34) 02/13/17 17:56 - Constitutional Appears: Non-toxic - Head Exam Head Exam: ATRAUMATIC, NORMOCEPHALIC - Eye Exam Eye Exam: Normal appearance - Respiratory Exam Respiratory Exam: Clear to Ausculation Bilateral, NORMAL BREATHING PATTERN - Cardiovascular Exam Cardiovascular Exam: Tachycardia, +S1, +S2 - GI/Abdominal Exam GI & Abdominal Exam: Soft, Tenderness (RLQ), Normal Bowel Sounds - Neurological Exam Neurological Exam: Alert, Awake - Skin Skin Exam: Dry, Warm Assessment and Plan - Assessment and Plan (Free Text) Assessment: Abdominal Pain - Secondary to acute perforated appendix - CT A/P w/ PO/IV (02/13/17): Dilated appendix, free fluid/air adjacent to appendix c/w ruptured acute appendicitis. Small right pleural effusion. Infiltrates/atelectasis in lung bases, most prominent on right. Dilated small bowel loops with air/fluid contrast levels. No transition point appreciated to suggest mechanical obstruction - most likely ileus. (see full report) - Abd xray: no acute perforation. - NPO diet - Surgical consult: Dr. Cherry, help appreciated - Morphine 2mg (moderate), 4mg (severe) IV Q4H PRN for pain - No immediate surgery, will need interval appendectomy - Infectious disease consult, Dr. Lacey: - Recommend Zosyn 3.375 IV Q6H - Flagyl 500mg IV ONCE in ED - Zosyn 3.375 gm IV Q6H - Zofran 4mg IV Q4H - NS @ 150 Sepsis - Febrile and tachycardic overnight and in AM - WBC: 14.1 on admission, Tachycardic, Febrile, Tachypnic - Source: perforated appendicitis - Lactic acid: 2.1 -> 1.3 - Procalcitonin - 16 - f/u blood and urine culture - Abx as above Monitor for hypotension -consider ICU if eval if hypotensive Infiltrate/atelectasis - CT A/P: Infiltrates/atelectasis in lung bases, most prominent on right. - Zosyn 3.375 gm IV Q6H - Incentive spirometer Elevated BUN/Creatinine - resolved - 23/1.1 on admission - resolved - Pt dehydrated/anorexic for several days before - Monitor after hydration Fever - Tylenol 325 mg PO Q6h PRN Abnormal UA - UA (02/13/17): protein 2+, blood 1+, RBC 6, LE negative, nitrate negative - Pt admits dehydration/anorexia recently Prophylaxis - SCDs - Pepcid 20mg IV daily <Tha Marvin - Last Filed: 02/14/17 18:27> Objective - Vital Signs/Intake and Output Vital Signs (last 24 hours): Temp Pulse Resp BP Pulse Ox 99.6 F 109 H 20 107/62 98 02/14/17 15:13 02/14/17 15:13 02/14/17 15:13 02/14/17 15:13 02/14/17 15:13 Intake and Output: 02/14/17 02/14/17 06:59 18:59 Intake Total 1150 1200 Output Total 700 800 Balance 450 400 - Medications Medications: Current Medications Acetaminophen (Tylenol 325mg Tab) 650 mg PO Q6 PRN PRN Reason: Fever >100.4 F Last Admin: 02/14/17 12:34 Dose: 650 mg Famotidine (Pepcid) 20 mg IVP DAILY [facility] Last Admin: 02/14/17 10:42 Dose: 20 mg Piperacillin Sod/Tazobactam Sod (Zosyn 3.375 Gm Iv Premix) 50 mls @ 100 mls/hr IVPB Q6H [facility] Last Admin: 02/14/17 12:36 Dose: 100 mls/hr Sodium Chloride (Sodium Chloride 0.9%) 1,000 mls @ 125 mls/hr IV .Q8H [facility] Last Admin: 02/14/17 17:30 Dose: 125 mls/hr Influenza Virus Vaccine (Afluria) 45 mcg IM .ONCE ONE Stop: 02/15/17 10:01 Morphine Sulfate (Morphine) 4 mg IVP Q4H PRN PRN Reason: Pain, severe (8-10) Morphine Sulfate (Morphine) 2 mg IVP Q4 PRN PRN Reason: Pain, moderate (4-7) Last Admin: 02/14/17 10:43 Dose: 2 mg Ondansetron HCl (Zofran Inj) 4 mg IVP Q4 PRN PRN Reason: Nausea/Vomiting Pneumococcal Polyvalent Vaccine (Pneumovax 23 Vaccine) 0.5 ml IM .ONCE ONE Stop: 02/15/17 10:01 - Labs Labs: 02/14/17 06:12 PT 19.7 SECONDS (9.7-12.2) H 02/13/17 17:56 INR 1.7 02/13/17 17:56 APTT 30 SECONDS (21-34) 02/13/17 17:56 Attending/Attestation - Attestation I have personally seen and examined this patient.: Yes I have fully participated in the care of the patient.: Yes I have reviewed all pertinent clinical information, including history, physical exam and plan: Yes Notes (Text): 02/14/17 18:26 Patient was seen and examined at bedside with the resident Abdominal pain has improved Surgical evaluation seen and appreciated No plan for immediate surgery We will continue IV antibiotics ID consultation has been requested Patient will need interval appendectomy as per surgery.
[2017-02-14] MEDS: Sodium Chloride 0.9% 1,000 ML IV SCH ×2 (17:30→22:55)
--- NOTE | 2017-02-14 17:49 | CP.PCM.CON ---
History of Present Illness - History of Present Illness History of Present Illness: 31 yo male admitted with possible ruptured appendix c/o RLQ abd pain x 3-4 days appears weak and uncomfortable but NAD denies any other symptoms Review of Systems - Constitutional Constitutional: As Per HPI, Anorexia, Fever, Malaise - EENT Eyes: absent: As Per HPI, Blind Spots, Blurred Vision, Change in Vision, Decreased Night Vision, Diplopia, Discharge, Dry Eye, Exophthalmos, Floaters, Irritation, Itchy Eyes, Loss of Peripheral Vision, Pain, Photophobia, Requires Corrective Lenses, Sees Flashes, Spots in Vision, Tunnel Vision, Other Visual Disturbances, Loss of Vision, Other Ears: absent: As Per HPI, Decreased Hearing, Ear Discharge, Ear Pain, Tinnitus, Abnormal Hearing, Disequilibrium, Dizziness, Other Nose/Mouth/Throat: absent: As Per HPI, Epistaxis, Nasal Congestion, Nasal Discharge, Nasal Obstruction, Nasal Trauma, Nose Pain, Post Nasal Drip, Sinus Pain, Sinus Pressure, Bleeding Gums, Change in Voice, Dental Pain, Dry Mouth, Dysphagia, Halitosis, Hoarsness, Lip Swelling, Mouth Lesions, Mouth Pain, Odynophagia, Sore Throat, Throat Swelling, Tongue Swelling, Facial Pain, Neck Pain, Neck Mass, Other - Cardiovascular Cardiovascular: absent: As Per HPI, Acrocyanosis, Chest Pain, Chest Pain at Rest , Chest Pain with Activity, Claudication, Diaphoresis, Dyspnea, Dyspnea on Exertion, Edema, Irregular Heart Rhythm, Pain Radiating to Arm/Neck/Jaw, Leg Edema, Leg Ulcers, Lightheadedness, Orthopnea, Palpitations, Paroxysmal Nocturnal Dyspnea, Pedal Edema, Radiating Pain, Rapid Heart Rate, Slow Heart Rate, Syncope, Other - Respiratory Respiratory: absent: As Per HPI, Cough, Dyspnea, Hemoptysis, Dyspnea on Exertion , Wheezing, Snoring, Stridor, Pain on Inspiration, Chest Congestion, Excessive Mucous Production, Change in Mucous Color, Pain with Coughing, Other - Gastrointestinal Gastrointestinal: As Per HPI - Genitourinary Genitourinary: absent: As Per HPI, Change in Urinary Stream, Difficulty Urinating, Dysuria, Flank Pain, Hematuria, Pyuria, Nocturia, Urinary Incontinence, Urinary Frequency, Urinary Hesitance, Urinary Urgency, Voiding Freq/Small Amts, Freq UTI, Hx Renal/Bladder Calculi, Hx /Renal Surgery, Bladder Distension, Other - Musculoskeletal Musculoskeletal: absent: As Per HPI, Abnormal Gait, Arthralgias, Atrophy, Back Pain, Deformity, Joint Swelling, Limited Range of Motion, Loss of Height, Muscle Cramps, Muscle Weakness, Myalgias, Neck Pain, Numbness, Radiating Pain into Limb, Stiffness, Tingling, Other - Integumentary Integumentary: absent: As Per HPI, Acne, Alopecia, Bleeding Lesions, Change in Hair, Change in Nails, Change in Pigmentation, Changing Lesions, Dry Skin, Erythema, Furuncle, Hirsutism, Lesions, New Lesions, Non-Healing Lesions, Photosensitivity, Pruritus, Rash, Skin Pain, Skin Ulcer, Sores, Striae, Swelling , Unusual Bruising, Wounds, Jaundice, Other - Neurological Neurological: absent: As Per HPI, Abnormal Gait, Abnormal Hearing, Abnormal Movements, Abnormal Speech, Behavioral Changes, Burning Sensations, Confusion, Convulsions, Disequilibrium, Dizziness, Numbness, Focal Weakness, Frequent Falls , Headaches, Lack of Coordination, Loss of Vision, Memory Loss, Paresthesias, Radicular Pain, Restless Legs, Sensory Deficit, Syncope, Tingling, Tremor, Vertigo, Weakness, Other Visual Disturbances, Other - Psychiatric Psychiatric: absent: As Per HPI, Abnormal Sleep Pattern, Anhedonia, Anxiety, Auditory Hallucinations, Behavioral Changes, Change in Appetite, Change in Libido, Confusion, Depression, Difficulty Concentrating, Hallucinations, Homicidal Ideation, Hopelessness, Irritability, Memory Loss, Mood Swings, Panic Attacks, Paranoia, Suicidal Ideation, Visual Hallucinations, Tactile Hallucinations, Other - Endocrine Endocrine: absent: As Per HPI, Change in Body Appearance, Change in Libido, Cold Intolorance, Deepening of Voice, Excessive Sweating, Fatigue, Flushing, Heat Intolorance, Increase in Ring/Shoe/Hat Size, Palpitations, Polydipsia, Polyphagia, Polyuria, Other - Hematologic/Lymphatic Hematologic: absent: As Per HPI, Easy Bleeding, Easy Bruising, Lymphadenopathy, Other Past Patient History - Infectious Disease Hx of Infectious Diseases: None - Past Medical History & Family History Past Medical History?: Yes - Past Social History Smoking Status: Never Smoked - CARDIAC Hx Cardiac Disorders: No - PULMONARY Hx Respiratory Disorders: No - NEUROLOGICAL Hx Neurological Disorder: No - HEENT Hx HEENT Problems: No - RENAL Hx Chronic Kidney Disease: No - ENDOCRINE/METABOLIC Hx Endocrine Disorders: No - HEMATOLOGICAL/ONCOLOGICAL Hx Blood Disorders: No - INTEGUMENTARY Hx Dermatological Problems: No - MUSCULOSKELETAL/RHEUMATOLOGICAL Hx Musculoskeletal Disorders: No Hx Falls: No - GASTROINTESTINAL Hx Gastrointestinal Disorders: No - GENITOURINARY/GYNECOLOGICAL Hx Genitourinary Disorders: No - PSYCHIATRIC Hx Substance Use: No - SURGICAL HISTORY Hx Surgeries: No - ANESTHESIA Hx Anesthesia: No Meds Allergies/Adverse Reactions: Allergies Allergy/AdvReac Type Severity Reaction Status Date / Time No Known Allergies Allergy Verified 02/13/17 16:39 - Medications Medications: Current Medications Acetaminophen (Tylenol 325mg Tab) 650 mg PO Q6 PRN PRN Reason: Fever >100.4 F Last Admin: 02/14/17 12:34 Dose: 650 mg Famotidine (Pepcid) 20 mg IVP DAILY [facility] Last Admin: 02/14/17 10:42 Dose: 20 mg Piperacillin Sod/Tazobactam Sod (Zosyn 3.375 Gm Iv Premix) 50 mls @ 100 mls/hr IVPB Q6H [facility] Last Admin: 02/14/17 12:36 Dose: 100 mls/hr Sodium Chloride (Sodium Chloride 0.9%) 1,000 mls @ 125 mls/hr IV .Q8H [facility] Last Admin: 02/14/17 17:30 Dose: 125 mls/hr Influenza Virus Vaccine (Afluria) 45 mcg IM .ONCE ONE Stop: 02/15/17 10:01 Morphine Sulfate (Morphine) 4 mg IVP Q4H PRN PRN Reason: Pain, severe (8-10) Morphine Sulfate (Morphine) 2 mg IVP Q4 PRN PRN Reason: Pain, moderate (4-7) Last Admin: 02/14/17 10:43 Dose: 2 mg Ondansetron HCl (Zofran Inj) 4 mg IVP Q4 PRN PRN Reason: Nausea/Vomiting Pneumococcal Polyvalent Vaccine (Pneumovax 23 Vaccine) 0.5 ml IM .ONCE ONE Stop: 02/15/17 10:01 Physical Exam - Constitutional Appears: Toxic, No Acute Distress - Head Exam Head Exam: ATRAUMATIC, NORMAL INSPECTION, NORMOCEPHALIC - Eye Exam Eye Exam: PERRL. absent: Scleral icterus - ENT Exam ENT Exam: Mucous Membranes Dry, Normal External Ear Exam, Normal Oropharynx - Neck Exam Neck exam: Negative for: Lymphadenopathy, Thyromegaly - Respiratory Exam Respiratory Exam: Decreased Breath Sounds, Clear to Auscultation Bilateral - Cardiovascular Exam Cardiovascular Exam: Tachycardia, REGULAR RHYTHM, +S1, +S2 - GI/Abdominal Exam GI & Abdominal Exam: Diminished Bowel Sounds, Firm, Guarding, Rebound, Soft, Tenderness. absent: Hernia, Organomegaly, Pulsatile Mass, Rigid - Rectal Exam Rectal Exam: Deferred - Exam Exam: NORMAL INSPECTION - Extremities Exam Extremities exam: Positive for: pedal pulses present. Negative for: calf tenderness, pedal edema, tenderness - Back Exam Back exam: absent: CVA tenderness (L), CVA tenderness (R), paraspinal tenderness - Neurological Exam Neurological exam: Alert, CN II-XII Intact, Oriented x3, Reflexes Normal - Psychiatric Exam Psychiatric exam: Depressed - Skin Skin Exam: Dry Results - Vital Signs Recent Vital Signs: Last Vital Signs Temp 99.6 F 02/14/17 15:13 Pulse 109 H 02/14/17 15:13 Resp 20 02/14/17 15:13 BP 107/62 02/14/17 15:13 Pulse Ox 98 02/14/17 15:13 - Labs Result Diagrams: 02/13/17 17:51 02/14/17 06:12 Labs: Laboratory Results - last 24 hr 02/14/17 02/14/17 02/14/17 06:12 07:19 Unknown Sodium 138 Potassium 4.0 Chloride 97 L Carbon Dioxide 28 Anion Gap 18 BUN 12 Creatinine 0.8 Est GFR ( Amer) > 60 Est GFR (Non-Af Amer) > 60 Random Glucose 106 Lactic Acid 1.3 Calcium 8.3 L Total Bilirubin 1.2 AST 16 L ALT 17 L D Alkaline Phosphatase 66 Total Protein 6.1 L Albumin 3.3 L Globulin 2.8 Albumin/Globulin Ratio 1.2 Procalcitonin 16.00 H Urine Color Yellow Urine Clarity Clear Urine pH 5.0 Ur Specific Mcgrath 1.024 Urine Protein 1+ H Urine Glucose (UA) Normal Urine Ketones Trace Urine Blood 1+ H Urine Nitrate Negative Urine Bilirubin Negative Urine Urobilinogen Normal Ur Leukocyte Esterase Neg Urine WBC (Auto) 3 Urine RBC (Auto) 3 Urine Bacteria Rare Assessment & Plan (1) Acute appendicitis with rupture Status: Acute - Assessment and Plan (Free Text) Assessment: cont iv antibiotics consider OR / appendectomy
[2017-02-15] MEDS: Piperacill/Tazo 3.375gm in Dex 50 ML IVPB SCH ×4 (00:18→19:10)
[2017-02-15] MEDS: Sodium Chloride 0.9% 1,000 ML IV SCH ×3 (01:00→20:31)
[2017-02-15 06:25] LABS: BASO % 0.2 % (0.0-2.0); EOS % 0.3 % (0.0-4.0); HEMATOCRIT 30.1 % (35.0-51.0); LYMPH # 0.7 K/uL (1.0-4.3); LYMPH % 8.8 % (20.0-40.0); MEAN CELL VOLUME 86.5 fL (80.0-94.0); MEAN CORPUSCULAR HEMOGLOBIN 29.7 pg (27.0-31.0); MEAN CORPUSCULAR HGB CONC 34.3 g/dL (33.0-37.0); MEAN PLATELET VOLUME 7.5 fL (7.2-11.7); MONO # 0.4 K/uL (0.0-0.8); MONO % 5.8 % (0.0-10.0); PLATELET COUNT 187 K/uL (130-400); RED CELL DISTRIBUTION WIDTH 13.4 % (11.5-14.5); WHITE BLOOD COUNT 7.4 K/uL (4.8-10.8)
[2017-02-15 06:48] LABS: CHLORIDE 100 mmol/L (98-107)
[2017-02-15 06:49] LABS: POTASSIUM 3.6 mmol/L (3.6-5.2); SODIUM 141 mmol/L (132-148)
[2017-02-15 06:51] LABS: ALB/GLOB RATIO 1.1 (1.0-2.1); ALKALINE PHOSPHATASE 53 U/L (38-126); AST/SGOT 13 U/L (17-59); BILIRUBIN,TOTAL 0.9 mg/dL (0.2-1.3); BLOOD UREA NITROGEN 14 mg/dL (9-20); CARBON DIOXIDE 28 mmol/L (22-30); GFR AFRICAN-AMERICAN > 60; GLUCOSE,RANDOM 91 mg/dL (75-110); TOTAL PROTEIN 5.4 g/dL (6.3-8.3)
[2017-02-15 06:52] LABS: ALT/SGPT 17 U/L (21-72); CALCIUM 7.8 mg/dl (8.6-10.4)
--- NOTE | 2017-02-15 08:27 | CP.PCM.PN ---
<Edson VanegasErrol - Last Filed: 02/15/17 08:24> Subjective - Date & Time of Evaluation Date of Evaluation: 02/15/17 Time of Evaluation: 08:24 - Subjective Subjective: Surgery: Dr. Cherry Patient continues to improved. Pain no isolated to RLQ and much better than admission. He reports fever yesterday but none today. He remains NPO. denies n/ v. Reports diarrhea nonbloody. He states he wants to drink fluids. Objective - Vital Signs/Intake and Output Vital Signs (last 24 hours): Temp Pulse Resp BP Pulse Ox 98.4 F 99 H 20 95/59 L 97 02/15/17 07:10 02/15/17 07:10 02/15/17 07:10 02/15/17 07:10 02/15/17 07:10 Intake and Output: 02/15/17 02/15/17 06:59 18:59 Intake Total 2157.5 Output Total 2 Balance 2155.5 - Medications Medications: Current Medications Acetaminophen (Tylenol 325mg Tab) 650 mg PO Q6 PRN PRN Reason: Fever >100.4 F Last Admin: 02/14/17 22:15 Dose: 650 mg Famotidine (Pepcid) 20 mg IVP DAILY [facility] Last Admin: 02/14/17 10:42 Dose: 20 mg Piperacillin Sod/Tazobactam Sod (Zosyn 3.375 Gm Iv Premix) 50 mls @ 100 mls/hr IVPB Q6H [facility] Last Admin: 02/15/17 06:45 Dose: 100 mls/hr Sodium Chloride (Sodium Chloride 0.9%) 1,000 mls @ 125 mls/hr IV .Q8H [facility] Last Admin: 02/15/17 01:00 Dose: Not Given Influenza Virus Vaccine (Afluria) 45 mcg IM .ONCE ONE Stop: 02/15/17 10:01 Morphine Sulfate (Morphine) 4 mg IVP Q4H PRN PRN Reason: Pain, severe (8-10) Morphine Sulfate (Morphine) 2 mg IVP Q4 PRN PRN Reason: Pain, moderate (4-7) Last Admin: 02/14/17 10:43 Dose: 2 mg Ondansetron HCl (Zofran Inj) 4 mg IVP Q4 PRN PRN Reason: Nausea/Vomiting Pneumococcal Polyvalent Vaccine (Pneumovax 23 Vaccine) 0.5 ml IM .ONCE ONE Stop: 02/15/17 10:01 - Labs Labs: 02/15/17 06:06 02/15/17 06:06 PT 19.7 SECONDS (9.7-12.2) H 02/13/17 17:56 INR 1.7 02/13/17 17:56 APTT 30 SECONDS (21-34) 02/13/17 17:56 - Constitutional Appears: Well, Non-toxic, No Acute Distress - Head Exam Head Exam: ATRAUMATIC, NORMOCEPHALIC - Eye Exam Eye Exam: EOMI, Normal appearance - ENT Exam ENT Exam: Mucous Membranes Dry - Respiratory Exam Respiratory Exam: NORMAL BREATHING PATTERN. absent: Respiratory Distress - Cardiovascular Exam Cardiovascular Exam: REGULAR RHYTHM. absent: Tachycardia - GI/Abdominal Exam GI & Abdominal Exam: Soft, Tenderness (RLQ w/ deep palpation ). absent: Distended, Guarding, Rigid, Rebound - Extremities Exam Extremities Exam: Normal Inspection. absent: Calf Tenderness - Neurological Exam Neurological Exam: Alert, Awake, Oriented x3 - Psychiatric Exam Psychiatric exam: Normal Affect, Normal Mood - Skin Skin Exam: Dry, Normal Color, Warm Assessment and Plan - Assessment and Plan (Free Text) Assessment: 31 y/o male w/ perforated appendicitis Plan: -cont antibiotics for now -possible trial of liquids today -patient is improving -cont Zosyn -pain control -may consider repeat imaging in next few days for comparison -further recs per Dr. Cherry AKite PGY1 <Chris Cherry - Last Filed: 02/18/17 11:57> Objective - Vital Signs/Intake and Output Vital Signs (last 24 hours): Temp Pulse Resp BP Pulse Ox 98.6 F 86 20 99/64 L 98 02/18/17 08:03 02/18/17 08:03 02/18/17 08:03 02/18/17 08:03 02/18/17 08:03 Intake and Output: 02/18/17 02/18/17 06:59 18:59 Intake Total 2675 Output Total 1 Balance 2674 - Medications Medications: Current Medications Acetaminophen (Tylenol 325mg Tab) 650 mg PO Q6 PRN PRN Reason: Fever >100.4 F Last Admin: 02/15/17 19:08 Dose: 650 mg Famotidine (Pepcid) 20 mg IVP DAILY [facility] Last Admin: 02/18/17 09:59 Dose: 20 mg Piperacillin Sod/Tazobactam Sod (Zosyn 3.375 Gm Iv Premix) 50 mls @ 100 mls/hr IVPB Q6H [facility] Last Admin: 02/18/17 06:13 Dose: 100 mls/hr Potassium Chloride/Dextrose/Sod Cl (Potassium Chl 40 Meq In D5-1/2ns) 1,000 mls @ 125 mls/hr IV .Q8H [facility] Last Admin: 02/18/17 05:40 Dose: 125 mls/hr Morphine Sulfate (Morphine) 4 mg IVP Q4H PRN PRN Reason: Pain, severe (8-10) Morphine Sulfate (Morphine) 2 mg IVP Q4 PRN PRN Reason: Pain, moderate (4-7) Last Admin: 02/18/17 05:38 Dose: 2 mg Ondansetron HCl (Zofran Inj) 4 mg IVP Q4 PRN PRN Reason: Nausea/Vomiting Potassium Chloride (K-Dur 20 Meq Er Tab) 40 meq PO DAILY [facility] Last Admin: 02/18/17 10:00 Dose: 40 meq Saccharomyces Boulardii (Florastor) 250 mg PO BID [facility] Last Admin: 02/18/17 09:59 Dose: 250 mg - Labs Labs: 02/18/17 06:15 02/18/17 06:15 PT 19.7 SECONDS (9.7-12.2) H 02/13/17 17:56 INR 1.7 02/13/17 17:56 APTT 30 SECONDS (21-34) 02/13/17 17:56 Attending/Attestation - Attestation I have personally seen and examined this patient.: Yes I have fully participated in the care of the patient.: Yes I have reviewed all pertinent clinical information, including history, physical exam and plan: Yes Notes (Text): 02/18/17 11:56 Pt was seen and examined at bedside on 02/15/17 Agree with above note and assessment. Pt is improving Clinically CT scan of A/P tomorrow Plan d.w pt in detail Risk and benefit explained in detail.
[2017-02-15 08:43] LABS: NEUTROPHIL 68 % (50-75); TOTAL CELLS COUNTED 100
[2017-02-15] MEDS ORDERED: Influenza Virus Vaccine 45 mcg/0.5 ml Syr IM ONE (10:00)
[2017-02-15] MEDS ORDERED: Pneumococcal 23-Valent Vaccine IM ONE (10:00)
--- NOTE | 2017-02-15 14:51 | CP.PCM.PN ---
<Keon Harding - Last Filed: 02/15/17 14:45> Subjective - Date & Time of Evaluation Date of Evaluation: 02/15/17 Time of Evaluation: 14:45 - Subjective Subjective: pGY-1 note for medicine service Pt seen and examined at bedside. Pt reports fevers and diarrhea overnight. Per nursing, pt had fever of 102 that was refractory to tylenol but responded with additional Motrin. Pt feels better this morning. Denies current fevers, chills, chest pain, sob, nausea or vomiting. Objective - Vital Signs/Intake and Output Vital Signs (last 24 hours): Temp Pulse Resp BP Pulse Ox 98.6 F 105 H 20 105/65 94 L 02/15/17 12:25 02/15/17 12:25 02/15/17 12:25 02/15/17 12:25 02/15/17 12:25 Intake and Output: 02/15/17 02/15/17 06:59 18:59 Intake Total 2157.5 Output Total 2 Balance 2155.5 - Medications Medications: Current Medications Acetaminophen (Tylenol 325mg Tab) 650 mg PO Q6 PRN PRN Reason: Fever >100.4 F Last Admin: 02/14/17 22:15 Dose: 650 mg Famotidine (Pepcid) 20 mg IVP DAILY [facility] Last Admin: 02/15/17 09:34 Dose: 20 mg Piperacillin Sod/Tazobactam Sod (Zosyn 3.375 Gm Iv Premix) 50 mls @ 100 mls/hr IVPB Q6H [facility] Last Admin: 02/15/17 12:42 Dose: 100 mls/hr Sodium Chloride (Sodium Chloride 0.9%) 1,000 mls @ 125 mls/hr IV .Q8H [facility] Last Admin: 02/15/17 09:06 Dose: 125 mls/hr Influenza Virus Vaccine (Afluria) 45 mcg IM .ONCE ONE Stop: 02/17/17 10:01 Morphine Sulfate (Morphine) 4 mg IVP Q4H PRN PRN Reason: Pain, severe (8-10) Morphine Sulfate (Morphine) 2 mg IVP Q4 PRN PRN Reason: Pain, moderate (4-7) Last Admin: 02/14/17 10:43 Dose: 2 mg Ondansetron HCl (Zofran Inj) 4 mg IVP Q4 PRN PRN Reason: Nausea/Vomiting Pneumococcal Polyvalent Vaccine (Pneumovax 23 Vaccine) 0.5 ml IM .ONCE ONE Stop: 02/17/17 10:01 - Labs Labs: 02/15/17 06:06 02/15/17 06:06 PT 19.7 SECONDS (9.7-12.2) H 02/13/17 17:56 INR 1.7 02/13/17 17:56 APTT 30 SECONDS (21-34) 02/13/17 17:56 - Constitutional Appears: Non-toxic, No Acute Distress - Head Exam Head Exam: ATRAUMATIC, NORMOCEPHALIC - Eye Exam Eye Exam: Normal appearance - ENT Exam ENT Exam: Mucous Membranes Moist - Respiratory Exam Respiratory Exam: Clear to Ausculation Bilateral, NORMAL BREATHING PATTERN - Cardiovascular Exam Cardiovascular Exam: +S1, +S2 - GI/Abdominal Exam GI & Abdominal Exam: Soft, Tenderness (RLQ), Normal Bowel Sounds - Neurological Exam Neurological Exam: Alert, Awake - Skin Skin Exam: Dry, Warm Assessment and Plan - Assessment and Plan (Free Text) Assessment: Abdominal Pain - Secondary to acute perforated appendix - CT A/P w/ PO/IV (02/13/17): Dilated appendix, free fluid/air adjacent to appendix c/w ruptured acute appendicitis. Small right pleural effusion. Infiltrates/atelectasis in lung bases, most prominent on right. Dilated small bowel loops with air/fluid contrast levels. No transition point appreciated to suggest mechanical obstruction - most likely ileus. (see full report) - Abd xray: no acute perforation. - NPO diet - Surgical consult: Dr. Cherry, help appreciated - Morphine 2mg (moderate), 4mg (severe) IV Q4H PRN for pain - No immediate surgery, will need interval appendectomy - Infectious disease consult, Dr. Lacey: - Recommend Zosyn 3.375 IV Q6H - Flagyl 500mg IV ONCE in ED - Zosyn 3.375 gm IV Q6H - Zofran 4mg IV Q4H - NS @ 150 Sepsis - Febrile and tachycardic overnight and in AM - WBC: 14.1 on admission, Tachycardic, Febrile, Tachypnic - Source: perforated appendicitis - Lactic acid: 2.1 -> 1.3 - Procalcitonin - 16 - Blood cx 02/14 - no growth 24 hrs - Urine cx 02/14 - no growth 24 hours - Abx as above Monitor for hypotension -consider ICU if eval if hypotensive Acute anemia - Hgb 14 on admission, down to 10.7 now - secondary to dilution from IVF vs blood loss - Recheck CBC in afternoon - f/u - Stool occult - f/u Infiltrate/atelectasis - CT A/P: Infiltrates/atelectasis in lung bases, most prominent on right. - Zosyn 3.375 gm IV Q6H - Incentive spirometer Elevated BUN/Creatinine - resolved - /.1 on admission - resolved - Pt dehydrated/anorexic for several days before - Monitor after hydration Fever - Tylenol 325 mg PO Q6h PRN - Given motrin as well Abnormal UA - UA (02/13/17): protein 2+, blood 1+, RBC 6, LE negative, nitrate negative - Pt admits dehydration/anorexia recently Prophylaxis - SCDs - Pepcid 20mg IV daily <Tha Marvin - Last Filed: 02/15/17 17:28> Objective - Vital Signs/Intake and Output Vital Signs (last 24 hours): Temp Pulse Resp BP Pulse Ox 99.7 F H 116 H 20 116/65 95 02/15/17 15:33 02/15/17 15:33 02/15/17 15:33 02/15/17 15:33 02/15/17 15:33 Intake and Output: 02/15/17 02/15/17 06:59 18:59 Intake Total 2157.5 1100 Output Total 2 Balance 2155.5 1100 - Medications Medications: Current Medications Acetaminophen (Tylenol 325mg Tab) 650 mg PO Q6 PRN PRN Reason: Fever >100.4 F Last Admin: 02/14/17 22:15 Dose: 650 mg Famotidine (Pepcid) 20 mg IVP DAILY [facility] Last Admin: 02/15/17 09:34 Dose: 20 mg Piperacillin Sod/Tazobactam Sod (Zosyn 3.375 Gm Iv Premix) 50 mls @ 100 mls/hr IVPB Q6H [facility] Last Admin: 02/15/17 12:42 Dose: 100 mls/hr Sodium Chloride (Sodium Chloride 0.9%) 1,000 mls @ 125 mls/hr IV .Q8H [facility] Last Admin: 02/15/17 09:06 Dose: 125 mls/hr Influenza Virus Vaccine (Afluria) 45 mcg IM .ONCE ONE Stop: 02/17/17 10:01 Morphine Sulfate (Morphine) 4 mg IVP Q4H PRN PRN Reason: Pain, severe (8-10) Morphine Sulfate (Morphine) 2 mg IVP Q4 PRN PRN Reason: Pain, moderate (4-7) Last Admin: 02/14/17 10:43 Dose: 2 mg Ondansetron HCl (Zofran Inj) 4 mg IVP Q4 PRN PRN Reason: Nausea/Vomiting Pneumococcal Polyvalent Vaccine (Pneumovax 23 Vaccine) 0.5 ml IM .ONCE ONE Stop: 02/17/17 10:01 - Labs Labs: 02/15/17 06:06 02/15/17 06:06 PT 19.7 SECONDS (9.7-12.2) H 02/13/17 17:56 INR 1.7 02/13/17 17:56 APTT 30 SECONDS (21-34) 02/13/17 17:56 Attending/Attestation - Attestation I have personally seen and examined this patient.: Yes I have fully participated in the care of the patient.: Yes I have reviewed all pertinent clinical information, including history, physical exam and plan: Yes Notes (Text): 02/15/17 17:27 Patient was seen and examined at bedside with the resident Patient stated that she is feeling better today Abdominal pain is improving Patient to has had some loose bowel movements since yesterday We will continue IV antibiotics Conservative management as per surgery next and no immediate plan for surgery
--- NOTE | 2017-02-15 18:09 | CP.PCM.PN ---
Subjective - Date & Time of Evaluation Date of Evaluation: 02/15/17 Time of Evaluation: 08:00 - Subjective Subjective: improved less fever alert/ responsive rlq tenderness less rebound/guarding less cont iv rx Objective - Vital Signs/Intake and Output Vital Signs (last 24 hours): Temp Pulse Resp BP Pulse Ox 99.7 F H 116 H 20 116/65 95 02/15/17 15:33 02/15/17 15:33 02/15/17 15:33 02/15/17 15:33 02/15/17 15:33 Intake and Output: 02/15/17 02/15/17 06:59 18:59 Intake Total 2157.5 1100 Output Total 2 Balance 2155.5 1100 - Medications Medications: Current Medications Acetaminophen (Tylenol 325mg Tab) 650 mg PO Q6 PRN PRN Reason: Fever >100.4 F Last Admin: 02/14/17 22:15 Dose: 650 mg Famotidine (Pepcid) 20 mg IVP DAILY [facility] Last Admin: 02/15/17 09:34 Dose: 20 mg Piperacillin Sod/Tazobactam Sod (Zosyn 3.375 Gm Iv Premix) 50 mls @ 100 mls/hr IVPB Q6H [facility] Last Admin: 02/15/17 12:42 Dose: 100 mls/hr Sodium Chloride (Sodium Chloride 0.9%) 1,000 mls @ 125 mls/hr IV .Q8H [facility] Last Admin: 02/15/17 09:06 Dose: 125 mls/hr Influenza Virus Vaccine (Afluria) 45 mcg IM .ONCE ONE Stop: 02/17/17 10:01 Morphine Sulfate (Morphine) 4 mg IVP Q4H PRN PRN Reason: Pain, severe (8-10) Morphine Sulfate (Morphine) 2 mg IVP Q4 PRN PRN Reason: Pain, moderate (4-7) Last Admin: 02/14/17 10:43 Dose: 2 mg Ondansetron HCl (Zofran Inj) 4 mg IVP Q4 PRN PRN Reason: Nausea/Vomiting Pneumococcal Polyvalent Vaccine (Pneumovax 23 Vaccine) 0.5 ml IM .ONCE ONE Stop: 02/17/17 10:01 - Labs Labs: 02/15/17 06:06 02/15/17 06:06 PT 19.7 SECONDS (9.7-12.2) H 02/13/17 17:56 INR 1.7 02/13/17 17:56 APTT 30 SECONDS (21-34) 02/13/17 17:56 Assessment and Plan (1) Acute appendicitis with rupture Status: Acute
[2017-02-15 20:02] LABS: HEMATOCRIT 28.8 % (35.0-51.0); MEAN CELL VOLUME 85.8 fL (80.0-94.0); MEAN CORPUSCULAR HEMOGLOBIN 28.8 pg (27.0-31.0); MEAN CORPUSCULAR HGB CONC 33.5 g/dL (33.0-37.0); MEAN PLATELET VOLUME 7.7 fL (7.2-11.7); RED CELL DISTRIBUTION WIDTH 13.6 % (11.5-14.5); WHITE BLOOD COUNT 6.9 K/uL (4.8-10.8)
[2017-02-16] MEDS: Piperacill/Tazo 3.375gm in Dex 50 ML IVPB SCH ×4 (01:10→19:20)
[2017-02-16 06:09] LABS: BASO % 0.4 % (0.0-2.0); EOS % 0.4 % (0.0-4.0); LYMPH # 0.7 K/uL (1.0-4.3); LYMPH % 9.2 % (20.0-40.0); MEAN CORPUSCULAR HEMOGLOBIN 29.3 pg (27.0-31.0); MEAN PLATELET VOLUME 7.7 fL (7.2-11.7); MONO # 0.8 K/uL (0.0-0.8); MONO % 10.7 % (0.0-10.0); PLATELET COUNT 195 K/uL (130-400); RED CELL DISTRIBUTION WIDTH 13.3 % (11.5-14.5); WHITE BLOOD COUNT 7.3 K/uL (4.8-10.8)
[2017-02-16 06:25] LABS: CHLORIDE 97 mmol/L (98-107); POTASSIUM 2.8 mmol/L (3.6-5.2); SODIUM 137 mmol/L (132-148)
[2017-02-16 06:27] LABS: AST/SGOT 23 U/L (17-59); BILIRUBIN,TOTAL 0.8 mg/dL (0.2-1.3); CARBON DIOXIDE 24 mmol/L (22-30); GFR AFRICAN-AMERICAN > 60
[2017-02-16 06:28] LABS: ALKALINE PHOSPHATASE 70 U/L (38-126); ALT/SGPT 26 U/L (21-72); BLOOD UREA NITROGEN 7 mg/dL (9-20); GLUCOSE,RANDOM 102 mg/dL (75-110); TOTAL PROTEIN 5.6 g/dL (6.3-8.3)
[2017-02-16 06:29] LABS: CALCIUM 7.5 mg/dl (8.6-10.4)
--- NOTE | 2017-02-16 08:03 | CP.PCM.PN ---
<Edson VanegasErrol - Last Filed: 02/16/17 08:00> Subjective - Date & Time of Evaluation Date of Evaluation: 02/16/17 Time of Evaluation: 08:00 - Subjective Subjective: Surgery: Dr. Cherry Patient feeling better today. Pain really localized to RLQ. He reports fever yesterday afternoon. He is tolerating liquid diet w/o n/v. He reports nonbloody diarrhea. per nursing no acute events overnight. Objective - Vital Signs/Intake and Output Vital Signs (last 24 hours): Temp Pulse Resp BP Pulse Ox 99.8 F H 110 H 20 117/77 96 02/15/17 23:10 02/16/17 00:04 02/15/17 23:10 02/15/17 23:10 02/15/17 23:10 Intake and Output: 02/16/17 02/16/17 06:59 18:59 Intake Total 1400 Balance 1400 - Medications Medications: Current Medications Acetaminophen (Tylenol 325mg Tab) 650 mg PO Q6 PRN PRN Reason: Fever >100.4 F Last Admin: 02/15/17 19:08 Dose: 650 mg Famotidine (Pepcid) 20 mg IVP DAILY [facility] Last Admin: 02/15/17 09:34 Dose: 20 mg Piperacillin Sod/Tazobactam Sod (Zosyn 3.375 Gm Iv Premix) 50 mls @ 100 mls/hr IVPB Q6H [facility] Last Admin: 02/15/17 19:10 Dose: 100 mls/hr Potassium Chloride/Dextrose/Sod Cl (Potassium Chl 40 Meq In D5-1/2ns) 1,000 mls @ 125 mls/hr IV .Q8H [facility] Influenza Virus Vaccine (Afluria) 45 mcg IM .ONCE ONE Stop: 02/17/17 10:01 Morphine Sulfate (Morphine) 4 mg IVP Q4H PRN PRN Reason: Pain, severe (8-10) Morphine Sulfate (Morphine) 2 mg IVP Q4 PRN PRN Reason: Pain, moderate (4-7) Last Admin: 02/14/17 10:43 Dose: 2 mg Ondansetron HCl (Zofran Inj) 4 mg IVP Q4 PRN PRN Reason: Nausea/Vomiting Pneumococcal Polyvalent Vaccine (Pneumovax 23 Vaccine) 0.5 ml IM .ONCE ONE Stop: 02/17/17 10:01 Potassium Chloride (K-Dur 20 Meq Er Tab) 40 meq PO DAILY [facility] - Labs Labs: 02/16/17 05:58 02/16/17 05:58 PT 19.7 SECONDS (9.7-12.2) H 02/13/17 17:56 INR 1.7 02/13/17 17:56 APTT 30 SECONDS (21-34) 02/13/17 17:56 - Constitutional Appears: Non-toxic, No Acute Distress - Head Exam Head Exam: ATRAUMATIC, NORMOCEPHALIC - Eye Exam Eye Exam: EOMI, Normal appearance - ENT Exam ENT Exam: Mucous Membranes Moist - Respiratory Exam Respiratory Exam: NORMAL BREATHING PATTERN. absent: Respiratory Distress - Cardiovascular Exam Cardiovascular Exam: Tachycardia, REGULAR RHYTHM - GI/Abdominal Exam GI & Abdominal Exam: Firm (RLQ), Soft, Tenderness (isolated to RLQ, moderate). absent: Rigid, Rebound - Neurological Exam Neurological Exam: Alert, Awake, Oriented x3 - Psychiatric Exam Psychiatric exam: Normal Affect, Normal Mood - Skin Skin Exam: Dry, Normal Color, Warm Assessment and Plan - Assessment and Plan (Free Text) Assessment: 31 y/o male w/ perforated appendicitis Plan: -repeat CT scan for comparision -patient remains febrile but WBC WNL -cont liquid diet for now -daily labs -encourage IS use and OOB -cont abx -medical management per primary AKWhite PGY1 <Chris Cherry - Last Filed: 02/18/17 12:01> Objective - Vital Signs/Intake and Output Vital Signs (last 24 hours): Temp Pulse Resp BP Pulse Ox 98.6 F 86 20 99/64 L 98 02/18/17 08:03 02/18/17 08:03 02/18/17 08:03 02/18/17 08:03 02/18/17 08:03 Intake and Output: 02/18/17 02/18/17 06:59 18:59 Intake Total 2675 Output Total 1 Balance 2674 - Medications Medications: Current Medications Acetaminophen (Tylenol 325mg Tab) 650 mg PO Q6 PRN PRN Reason: Fever >100.4 F Last Admin: 02/15/17 19:08 Dose: 650 mg Famotidine (Pepcid) 20 mg IVP DAILY [facility] Last Admin: 02/18/17 09:59 Dose: 20 mg Piperacillin Sod/Tazobactam Sod (Zosyn 3.375 Gm Iv Premix) 50 mls @ 100 mls/hr IVPB Q6H [facility] Last Admin: 02/18/17 06:13 Dose: 100 mls/hr Potassium Chloride/Dextrose/Sod Cl (Potassium Chl 40 Meq In D5-1/2ns) 1,000 mls @ 125 mls/hr IV .Q8H [facility] Last Admin: 02/18/17 05:40 Dose: 125 mls/hr Morphine Sulfate (Morphine) 4 mg IVP Q4H PRN PRN Reason: Pain, severe (8-10) Morphine Sulfate (Morphine) 2 mg IVP Q4 PRN PRN Reason: Pain, moderate (4-7) Last Admin: 02/18/17 05:38 Dose: 2 mg Ondansetron HCl (Zofran Inj) 4 mg IVP Q4 PRN PRN Reason: Nausea/Vomiting Potassium Chloride (K-Dur 20 Meq Er Tab) 40 meq PO DAILY [facility] Last Admin: 02/18/17 10:00 Dose: 40 meq Saccharomyces Boulardii (Florastor) 250 mg PO BID [facility] Last Admin: 02/18/17 09:59 Dose: 250 mg - Labs Labs: 02/18/17 06:15 02/18/17 06:15 PT 19.7 SECONDS (9.7-12.2) H 02/13/17 17:56 INR 1.7 02/13/17 17:56 APTT 30 SECONDS (21-34) 02/13/17 17:56 Attending/Attestation - Attestation I have personally seen and examined this patient.: Yes I have fully participated in the care of the patient.: Yes I have reviewed all pertinent clinical information, including history, physical exam and plan: Yes Notes (Text): 02/18/17 11:59 Pt was seen and examined at bedside on 02/16/17 Agree with above note and assessment. Pt with Acute Phlagmoneous Appendicitis with abscess on repeat CT scan. IR drainage today Plan [place] pt Dr.Manon Rex marcus pt in detail Risk and benefit explained in detail.
[2017-02-16 08:37] LABS: NEUTROPHIL 73 % (50-75); TOTAL CELLS COUNTED 100
[2017-02-16] MEDS: Potassium Chl 40 mEq in D5-1/2 1,000 ML IV SCH ×3 (08:53→22:16)
[2017-02-16] MEDS ORDERED: Iohexol 240 (50 ml) PO ONE (09:15)
[2017-02-16] MEDS ORDERED: Potassium Chloride 20 mEq ER Tab PO SCH (10:00)
[2017-02-16] MEDS ORDERED: Iodixanol 320 MG/ML 100 ML BOTTLE IV ONE (12:19)
--- NOTE | 2017-02-16 13:08 | CP.PCM.PN ---
<Keon Harding - Last Filed: 02/16/17 13:06> Subjective - Date & Time of Evaluation Date of Evaluation: 02/16/17 Time of Evaluation: 13:06 - Subjective Subjective: PGY-1 note for medicine service Pt seen and examined at bedside. Pt reports more pain today in his RLQ. He also continues to admit to several episodes of water, non-foul BMs. Denies fevers, chills, chest pain, sob, nausea or vomiting. Tolerating liquid diet. Objective - Vital Signs/Intake and Output Vital Signs (last 24 hours): Temp Pulse Resp BP Pulse Ox 99.2 F 102 H 18 125/76 95 02/16/17 08:52 02/16/17 08:52 02/16/17 08:52 02/16/17 08:52 02/16/17 08:52 Intake and Output: 02/16/17 02/16/17 06:59 18:59 Intake Total 1400 Balance 1400 - Medications Medications: Current Medications Acetaminophen (Tylenol 325mg Tab) 650 mg PO Q6 PRN PRN Reason: Fever >100.4 F Last Admin: 02/15/17 19:08 Dose: 650 mg Famotidine (Pepcid) 20 mg IVP DAILY [facility] Last Admin: 02/16/17 10:04 Dose: 20 mg Piperacillin Sod/Tazobactam Sod (Zosyn 3.375 Gm Iv Premix) 50 mls @ 100 mls/hr IVPB Q6H [facility] Last Admin: 02/16/17 07:20 Dose: 100 mls/hr Potassium Chloride/Dextrose/Sod Cl (Potassium Chl 40 Meq In D5-1/2ns) 1,000 mls @ 125 mls/hr IV .Q8H [facility] Last Admin: 02/16/17 08:53 Dose: 125 mls/hr Influenza Virus Vaccine (Afluria) 45 mcg IM .ONCE ONE Stop: 02/17/17 10:01 Morphine Sulfate (Morphine) 4 mg IVP Q4H PRN PRN Reason: Pain, severe (8-10) Morphine Sulfate (Morphine) 2 mg IVP Q4 PRN PRN Reason: Pain, moderate (4-7) Last Admin: 02/16/17 08:53 Dose: 2 mg Ondansetron HCl (Zofran Inj) 4 mg IVP Q4 PRN PRN Reason: Nausea/Vomiting Pneumococcal Polyvalent Vaccine (Pneumovax 23 Vaccine) 0.5 ml IM .ONCE ONE Stop: 02/17/17 10:01 Potassium Chloride (K-Dur 20 Meq Er Tab) 40 meq PO DAILY [facility] Last Admin: 02/16/17 09:22 Dose: 40 meq Saccharomyces Boulardii (Florastor) 250 mg PO BID [facility] - Labs Labs: 02/16/17 05:58 02/16/17 05:58 PT 19.7 SECONDS (9.7-12.2) H 02/13/17 17:56 INR 1.7 02/13/17 17:56 APTT 30 SECONDS (21-34) 02/13/17 17:56 - Constitutional Appears: Non-toxic - Head Exam Head Exam: ATRAUMATIC, NORMOCEPHALIC - ENT Exam ENT Exam: Mucous Membranes Moist - Respiratory Exam Respiratory Exam: Clear to Ausculation Bilateral, NORMAL BREATHING PATTERN - Cardiovascular Exam Cardiovascular Exam: +S1, +S2 - GI/Abdominal Exam GI & Abdominal Exam: Soft, Normal Bowel Sounds - Neurological Exam Neurological Exam: Alert, Awake - Skin Skin Exam: Dry, Normal Color, Warm Assessment and Plan - Assessment and Plan (Free Text) Assessment: Abdominal Pain - Secondary to acute perforated appendix - CT A/P w/ PO/IV (02/13/17): Dilated appendix, free fluid/air adjacent to appendix c/w ruptured acute appendicitis. Small right pleural effusion. Infiltrates/atelectasis in lung bases, most prominent on right. Dilated small bowel loops with air/fluid contrast levels. No transition point appreciated to suggest mechanical obstruction - most likely ileus. (see full report) - Abd xray: no acute perforation. - NPO diet - Surgical consult: Dr. Cherry, help appreciated - Morphine 2mg (moderate), 4mg (severe) IV Q4H PRN for pain - No immediate surgery, will need interval appendectomy - Changed to liquid diet, keep for now - Repeating CT today - f/u - Infectious disease consult, Dr. Lacey: - Recommend Zosyn 3.375 IV Q6H - Flagyl 500mg IV ONCE in ED - Zosyn 3.375 gm IV Q6H - Zofran 4mg IV Q4H - NS @ 150 Sepsis - Febrile yesterday afternoon, afebrile overnight, remains tachycardic - WBC: 14.1 on admission, Tachycardic, Febrile, Tachypnic - Source: perforated appendicitis - Lactic acid: 2.1 -> 1.3 - Procalcitonin - 16 - Blood cx 02/14 - no growth 24 hrs - Urine cx 02/14 - no growth 24 hours - Abx as above Monitor for hypotension -consider ICU if eval if hypotensive Acute anemia - Hgb stable ~10 - secondary to dilution from IVF vs blood loss - Stool occult - negative - Continue to monitor and transfuse if necessary Diarrhea - C diff - f/u - Started florastor - Monitor and replete electrolytes as needed - Continue IVF Hypokalemia - Repleted - Monitor and replete as needed Infiltrate/atelectasis - CT A/P: Infiltrates/atelectasis in lung bases, most prominent on right. - Zosyn 3.375 gm IV Q6H - Incentive spirometer Elevated BUN/Creatinine - resolved - 23/1.1 on admission - resolved - Pt dehydrated/anorexic for several days before - Monitor after hydration Fever - Tylenol 325 mg PO Q6h PRN - Given motrin as well Abnormal UA - UA (02/13/17): protein 2+, blood 1+, RBC 6, LE negative, nitrate negative - Pt admits dehydration/anorexia recently Prophylaxis - SCDs - Pepcid 20mg IV daily <Tha Marvin - Last Filed: 02/16/17 14:35> Objective - Vital Signs/Intake and Output Vital Signs (last 24 hours): Temp Pulse Resp BP Pulse Ox 98.7 F 95 H 20 119/76 97 02/16/17 13:38 02/16/17 13:38 02/16/17 13:38 02/16/17 13:38 02/16/17 13:38 Intake and Output: 02/16/17 02/16/17 06:59 18:59 Intake Total 1400 Balance 1400 - Medications Medications: Current Medications Acetaminophen (Tylenol 325mg Tab) 650 mg PO Q6 PRN PRN Reason: Fever >100.4 F Last Admin: 02/15/17 19:08 Dose: 650 mg Famotidine (Pepcid) 20 mg IVP DAILY [facility] Last Admin: 02/16/17 10:04 Dose: 20 mg Piperacillin Sod/Tazobactam Sod (Zosyn 3.375 Gm Iv Premix) 50 mls @ 100 mls/hr IVPB Q6H [facility] Last Admin: 02/16/17 13:40 Dose: 100 mls/hr Potassium Chloride/Dextrose/Sod Cl (Potassium Chl 40 Meq In D5-1/2ns) 1,000 mls @ 125 mls/hr IV .Q8H [facility] Last Admin: 02/16/17 08:53 Dose: 125 mls/hr Influenza Virus Vaccine (Afluria) 45 mcg IM .ONCE ONE Stop: 02/17/17 10:01 Morphine Sulfate (Morphine) 4 mg IVP Q4H PRN PRN Reason: Pain, severe (8-10) Morphine Sulfate (Morphine) 2 mg IVP Q4 PRN PRN Reason: Pain, moderate (4-7) Last Admin: 02/16/17 08:53 Dose: 2 mg Ondansetron HCl (Zofran Inj) 4 mg IVP Q4 PRN PRN Reason: Nausea/Vomiting Pneumococcal Polyvalent Vaccine (Pneumovax 23 Vaccine) 0.5 ml IM .ONCE ONE Stop: 02/17/17 10:01 Potassium Chloride (K-Dur 20 Meq Er Tab) 40 meq PO DAILY [facility] Last Admin: 02/16/17 09:22 Dose: 40 meq Saccharomyces Boulardii (Florastor) 250 mg PO BID [facility] - Labs Labs: 02/16/17 05:58 02/16/17 05:58 PT 19.7 SECONDS (9.7-12.2) H 02/13/17 17:56 INR 1.7 02/13/17 17:56 APTT 30 SECONDS (21-34) 02/13/17 17:56 Attending/Attestation - Attestation I have personally seen and examined this patient.: Yes I have fully participated in the care of the patient.: Yes I have reviewed all pertinent clinical information, including history, physical exam and plan: Yes Notes (Text): 02/16/17 14:33 Patient was seen and examined at bedside with the resident during the rounds today. Patient complains of for diarrhea last night and today He also complains of abdominal pain but it is relieved after pain medication Patient also spiked fever last night. Patient is on IV antibiotics Surgery team ordered repeat CAT scan of the abdomen and pelvis and we'll await the report of the CAT scan. We will continue current medical management as per the recommendations of surgery The surgical team is not planning any surgical intervention Patient has hypokalemia possibly secondary to GI losses We'll replace the electrolytes and check levels again. I discussed the plan of care with the resident and agree with the above assessment and plan by the resident
--- NOTE | 2017-02-16 14:31 | CT ---
PROCEDURE: CT Abdomen and Pelvis with contrast HISTORY: comparison, possibly intra-abdominal abscess COMPARISON: Comparison is made to the previous study dated 02/13/2017 TECHNIQUE: Axial and reformatted coronal and sagittal CT images of the abdomen and pelvis were obtained after IV and oral contrast administration. This CT exam was performed using one or more of the following dose reduction techniques: Automated exposure control, adjustment of the mA and/or kV according to patient size, and/or use of iterative reconstruction technique. Contrast dose: 100 mL Visipaque PE Radiation dose: Total exam DLP = 476.41 mGy-cm. FINDINGS: LOWER THORAX: There are bilateral pleural effusions larger on the right. Airspace consolidation seen at the lower lobes larger on the right may represent atelectasis. The possibility of pneumonia is less likely. LIVER: Mild hepatomegaly is again noted. GALLBLADDER AND BILE DUCTS: No CT evidence of cholecystitis. PANCREAS: Unremarkable. No gross lesion or ductal dilatation. SPLEEN: Unremarkable. ADRENALS: Unremarkable. No mass. KIDNEYS AND URETERS: Unremarkable. No hydronephrosis. No solid mass. VASCULATURE: Unremarkable. No aortic aneurysm. BOWEL: It is small bowel loops seen. [id number] wall thickening of the distal small bowel at the right lower abdomen and wall thickening of the cecum likely reactive from the adjacent phlegmon and infection/ inflammatory process secondary to rupture appendicitis. No evidence of high-grade bowel obstruction. APPENDIX: The appendix is not visualized. There is abscess formation seen at the right lower abdomen adjacent to the cecum likely due to rupture appendicitis. The abscess measures 6.8 centimeter in the longitudinal diameter and 4.2 centimeter in the transverse diameter contains air-fluid level. There are adjacent inflammatory changes. PERITONEUM: Small amount of free fluid seen at the right abdomen. LYMPH NODES: Unremarkable. No enlarged lymph nodes. BLADDER: Diffuse urinary bladder wall thickening seen. REPRODUCTIVE: Unremarkable. BONES: No acute fracture. OTHER FINDINGS: None. IMPRESSION: Findings suggestive of rupture appendicitis. Abscess formation seen at the right lower abdomen contains air-fluid level. Moderate wall thickening of the terminal ileum and adjacent cecum likely reactive secondary to adjacent inflammatory process. Small amount of free fluid in the abdomen and pelvis. . No evidence of bowel obstruction.
--- NOTE | 2017-02-16 15:20 | PCM.SURG1 ---
Surgeon's Initial Post Op Note - Surgeon's Notes Surgeon: Toan Waxing Machine Operator: None Type of Anesthesia: Local Pre-Operative Diagnosis: RLQ abscess Operative Findings: RLQ abscess Post-Operative Diagnosis: RLQ abscess Operation Performed: RLQ abscess drainage. Specimen/Specimens Removed: Approx 75cc of frankly purulent fluid aspirated. Estimated Blood Loss: EBL {In ML}: 1 Date of Surgery/Procedure: 02/16/17 Time of Surgery/Procedure: 15:10
[2017-02-16] MEDS: Saccharomyces Boulardi 250 mg Cap PO SCH (17:49)
--- NOTE | 2017-02-16 19:07 | CP.PCM.PN ---
Subjective - Date & Time of Evaluation Date of Evaluation: 02/16/17 Time of Evaluation: 10:00 - Subjective Subjective: S/P DRAINAGE WILL NEED APPENDECTOMY Objective - Vital Signs/Intake and Output Vital Signs (last 24 hours): Temp Pulse Resp BP Pulse Ox 98.9 F 94 H 18 118/76 95 02/16/17 16:11 02/16/17 16:11 02/16/17 16:11 02/16/17 16:11 02/16/17 16:11 Intake and Output: 02/16/17 02/17/17 18:59 06:59 Intake Total 1075 Balance 1075 - Medications Medications: Current Medications Acetaminophen (Tylenol 325mg Tab) 650 mg PO Q6 PRN PRN Reason: Fever >100.4 F Last Admin: 02/15/17 19:08 Dose: 650 mg Famotidine (Pepcid) 20 mg IVP DAILY [facility] Last Admin: 02/16/17 10:04 Dose: 20 mg Piperacillin Sod/Tazobactam Sod (Zosyn 3.375 Gm Iv Premix) 50 mls @ 100 mls/hr IVPB Q6H [facility] Last Admin: 02/16/17 13:40 Dose: 100 mls/hr Potassium Chloride/Dextrose/Sod Cl (Potassium Chl 40 Meq In D5-1/2ns) 1,000 mls @ 125 mls/hr IV .Q8H [facility] Last Admin: 02/16/17 08:53 Dose: 125 mls/hr Influenza Virus Vaccine (Afluria) 45 mcg IM .ONCE ONE Stop: 02/17/17 10:01 Morphine Sulfate (Morphine) 4 mg IVP Q4H PRN PRN Reason: Pain, severe (8-10) Morphine Sulfate (Morphine) 2 mg IVP Q4 PRN PRN Reason: Pain, moderate (4-7) Last Admin: 02/16/17 08:53 Dose: 2 mg Ondansetron HCl (Zofran Inj) 4 mg IVP Q4 PRN PRN Reason: Nausea/Vomiting Pneumococcal Polyvalent Vaccine (Pneumovax 23 Vaccine) 0.5 ml IM .ONCE ONE Stop: 02/17/17 10:01 Potassium Chloride (K-Dur 20 Meq Er Tab) 40 meq PO DAILY [facility] Last Admin: 02/16/17 09:22 Dose: 40 meq Saccharomyces Boulardii (Florastor) 250 mg PO BID [facility] Last Admin: 02/16/17 17:49 Dose: 250 mg - Labs Labs: 02/16/17 05:58 02/16/17 05:58 PT 19.7 SECONDS (9.7-12.2) H 02/13/17 17:56 INR 1.7 02/13/17 17:56 APTT 30 SECONDS (21-34) 02/13/17 17:56 - Constitutional Appears: Non-toxic, Chronically Ill - Head Exam Head Exam: NORMOCEPHALIC - Eye Exam Eye Exam: absent: Scleral icterus - ENT Exam ENT Exam: Mucous Membranes Dry, Normal External Ear Exam - Neck Exam Neck Exam: absent: Lymphadenopathy - Respiratory Exam Respiratory Exam: Decreased Breath Sounds, Clear to Ausculation Bilateral - Cardiovascular Exam Cardiovascular Exam: REGULAR RHYTHM - GI/Abdominal Exam GI & Abdominal Exam: Distended, Tenderness - Rectal Exam Rectal Exam: NORMAL INSPECTION Assessment and Plan (1) Acute appendicitis with rupture Status: Acute
[2017-02-17] MEDS: Piperacill/Tazo 3.375gm in Dex 50 ML IVPB SCH ×4 (01:27→18:30)
[2017-02-17] MEDS: Potassium Chl 40 mEq in D5-1/2 1,000 ML IV SCH ×3 (01:28→18:30)
[2017-02-17 07:07] LABS: BASO % 0.4 % (0.0-2.0); EOS # 0.1 K/uL (0.0-0.7); HEMATOCRIT 30.7 % (35.0-51.0); LYMPH # 0.9 K/uL (1.0-4.3); LYMPH % 12.9 % (20.0-40.0); MEAN CELL VOLUME 84.9 fL (80.0-94.0); MEAN CORPUSCULAR HEMOGLOBIN 28.6 pg (27.0-31.0); MEAN CORPUSCULAR HGB CONC 33.7 g/dL (33.0-37.0); MEAN PLATELET VOLUME 7.4 fL (7.2-11.7); MONO # 0.8 K/uL (0.0-0.8); MONO % 11.5 % (0.0-10.0); RED CELL DISTRIBUTION WIDTH 13.5 % (11.5-14.5); WHITE BLOOD COUNT 6.7 K/uL (4.8-10.8)
[2017-02-17 07:48] LABS: CHLORIDE 96 mmol/L (98-107); POTASSIUM 2.9 mmol/L (3.6-5.2); SODIUM 139 mmol/L (132-148)
[2017-02-17 07:50] LABS: AST/SGOT 25 U/L (17-59); BILIRUBIN,TOTAL 0.3 mg/dL (0.2-1.3); GFR AFRICAN-AMERICAN > 60
[2017-02-17 07:51] LABS: ALKALINE PHOSPHATASE 63 U/L (38-126); ALT/SGPT 23 U/L (21-72); BLOOD UREA NITROGEN 3 mg/dL (9-20); CALCIUM 7.9 mg/dl (8.6-10.4); CARBON DIOXIDE 28 mmol/L (22-30); GLUCOSE,RANDOM 127 mg/dL (75-110); TOTAL PROTEIN 5.9 g/dL (6.3-8.3)
--- NOTE | 2017-02-17 08:21 | CP.PCM.PN ---
<Kaylie Rivero - Last Filed: 02/17/17 08:17> Subjective - Date & Time of Evaluation Date of Evaluation: 02/17/17 Time of Evaluation: 07:00 - Subjective Subjective: GENERAL SURGERY PROGRESS NOTE FOR DR. CHERRY Patient seen and examined at bedside. He states that his pain has improved compared to yesterday. However, he still has pain in the RLQ where the IR drainage was done. He is tolerating diet and denies vomiting. He had a couple episodes of non bloody diarrhea last night. Objective - Vital Signs/Intake and Output Vital Signs (last 24 hours): Temp Pulse Resp BP Pulse Ox 97.7 F 90 20 110/73 97 02/17/17 07:05 02/17/17 07:05 02/17/17 07:05 02/17/17 07:05 02/17/17 07:05 Intake and Output: 02/17/17 02/17/17 06:59 18:59 Intake Total 1150 Balance 1150 - Medications Medications: Current Medications Acetaminophen (Tylenol 325mg Tab) 650 mg PO Q6 PRN PRN Reason: Fever >100.4 F Last Admin: 02/15/17 19:08 Dose: 650 mg Famotidine (Pepcid) 20 mg IVP DAILY [facility] Last Admin: 02/16/17 10:04 Dose: 20 mg Piperacillin Sod/Tazobactam Sod (Zosyn 3.375 Gm Iv Premix) 50 mls @ 100 mls/hr IVPB Q6H [facility] Last Admin: 02/17/17 06:09 Dose: 100 mls/hr Potassium Chloride/Dextrose/Sod Cl (Potassium Chl 40 Meq In D5-1/2ns) 1,000 mls @ 125 mls/hr IV .Q8H [facility] Last Admin: 02/17/17 01:28 Dose: Not Given Influenza Virus Vaccine (Afluria) 45 mcg IM .ONCE ONE Stop: 02/17/17 10:01 Morphine Sulfate (Morphine) 4 mg IVP Q4H PRN PRN Reason: Pain, severe (8-10) Morphine Sulfate (Morphine) 2 mg IVP Q4 PRN PRN Reason: Pain, moderate (4-7) Last Admin: 02/17/17 04:24 Dose: 2 mg Ondansetron HCl (Zofran Inj) 4 mg IVP Q4 PRN PRN Reason: Nausea/Vomiting Pneumococcal Polyvalent Vaccine (Pneumovax 23 Vaccine) 0.5 ml IM .ONCE ONE Stop: 02/17/17 10:01 Potassium Chloride (K-Dur 20 Meq Er Tab) 40 meq PO DAILY [facility] Last Admin: 02/16/17 09:22 Dose: 40 meq Saccharomyces Boulardii (Florastor) 250 mg PO BID [facility] Last Admin: 02/16/17 17:49 Dose: 250 mg - Labs Labs: 02/17/17 06:30 02/17/17 06:30 PT 19.7 SECONDS (9.7-12.2) H 02/13/17 17:56 INR 1.7 02/13/17 17:56 APTT 30 SECONDS (21-34) 02/13/17 17:56 - Constitutional Appears: Non-toxic, No Acute Distress - Head Exam Head Exam: ATRAUMATIC, NORMAL INSPECTION - Eye Exam Eye Exam: EOMI, Normal appearance - Respiratory Exam Respiratory Exam: NORMAL BREATHING PATTERN. absent: Respiratory Distress - Cardiovascular Exam Cardiovascular Exam: +S1, +S2 - GI/Abdominal Exam GI & Abdominal Exam: Soft, Tenderness (tender in RLQ). absent: Distended, Guarding, Rigid, Rebound Additional comments: + Rovsing sign IR Dressing clean/dry/intact - Neurological Exam Neurological Exam: Alert, Awake, Oriented x3 - Psychiatric Exam Psychiatric exam: Normal Affect, Normal Mood - Skin Skin Exam: Dry, Normal Color, Warm Assessment and Plan - Assessment and Plan (Free Text) Assessment: 31yo M with perforated appendicitis s/p IR drainage yesterday - Afebrile past 24 hours - No leukocytosis - Hypokalemia remains despite being on both PO and IV K - Mag and Phos ordered - Tolerating regular diet - Gram stain from IR drainage shows many gram - rods and many gram + cocci - Cx is pending - Continue IV Abx - Encouraged ambulation - Will discuss plan with Dr. Dilip Rivero PGY-2 <Chris Cherry - Last Filed: 02/18/17 12:06> Objective - Vital Signs/Intake and Output Vital Signs (last 24 hours): Temp Pulse Resp BP Pulse Ox 98.6 F 86 20 99/64 L 98 02/18/17 08:03 02/18/17 08:03 02/18/17 08:03 02/18/17 08:03 02/18/17 08:03 Intake and Output: 02/18/17 02/18/17 06:59 18:59 Intake Total 2675 Output Total 1 Balance 2674 - Medications Medications: Current Medications Acetaminophen (Tylenol 325mg Tab) 650 mg PO Q6 PRN PRN Reason: Fever >100.4 F Last Admin: 02/15/17 19:08 Dose: 650 mg Famotidine (Pepcid) 20 mg IVP DAILY [facility] Last Admin: 02/18/17 09:59 Dose: 20 mg Piperacillin Sod/Tazobactam Sod (Zosyn 3.375 Gm Iv Premix) 50 mls @ 100 mls/hr IVPB Q6H [facility] Last Admin: 02/18/17 06:13 Dose: 100 mls/hr Potassium Chloride/Dextrose/Sod Cl (Potassium Chl 40 Meq In D5-1/2ns) 1,000 mls @ 125 mls/hr IV .Q8H [facility] Last Admin: 02/18/17 05:40 Dose: 125 mls/hr Morphine Sulfate (Morphine) 4 mg IVP Q4H PRN PRN Reason: Pain, severe (8-10) Morphine Sulfate (Morphine) 2 mg IVP Q4 PRN PRN Reason: Pain, moderate (4-7) Last Admin: 02/18/17 05:38 Dose: 2 mg Ondansetron HCl (Zofran Inj) 4 mg IVP Q4 PRN PRN Reason: Nausea/Vomiting Potassium Chloride (K-Dur 20 Meq Er Tab) 40 meq PO DAILY [facility] Last Admin: 02/18/17 10:00 Dose: 40 meq Saccharomyces Boulardii (Florastor) 250 mg PO BID [facility] Last Admin: 02/18/17 09:59 Dose: 250 mg - Labs Labs: 02/18/17 06:15 02/18/17 06:15 PT 19.7 SECONDS (9.7-12.2) H 02/13/17 17:56 INR 1.7 02/13/17 17:56 APTT 30 SECONDS (21-34) 02/13/17 17:56 Attending/Attestation - Attestation I have personally seen and examined this patient.: Yes I have fully participated in the care of the patient.: Yes I have reviewed all pertinent clinical information, including history, physical exam and plan: Yes Notes (Text): 02/18/17 12:05 Pt was seen and examined at bedside on 02/17/17 Agree with above note and assessment. Pt is improved clinically after IR drainage C.w liquid diet and IV antibiotics Plan d.w pt in detail
[2017-02-17] MEDS ORDERED: Potassium Chloride 20 mEq ER Tab PO ONE ×2 (08:45→12:00)
[2017-02-17] MEDS: Saccharomyces Boulardi 250 mg Cap PO SCH ×2 (09:24→18:30)
[2017-02-17] MEDS ORDERED: Pneumococcal 23-Valent Vaccine IM ONE (10:00)
[2017-02-17] MEDS ORDERED: Influenza Virus Vaccine 45 mcg/0.5 ml Syr IM ONE (10:00)
--- NOTE | 2017-02-17 11:01 | CT ---
CT-guided right lower quadrant abscess drainage History: Appendicitis with the right lower quadrant abscess. Comparison: Comparison is made to CT from same day. Anesthesia: Local lidocaine provided by interventional radiologist. Procedure and findings: The procedure was explained to the patient in detail including relative risks and benefits. The patient understood the procedure well and provided informed consent. The right lower quadrant was prepped and draped in usual sterile techniques. A metallic grid was used to localize the abscess using CT guidance. 1 percent lidocaine was used to anesthetize the skin and subcutaneous tissue. After localizing the appropriate and safe access site, a needle was introduced into the subcutaneous tissue. The needle was confirmed in its position by CT guidance. Subsequently, a 5 Sinhala centesis catheter was introduced into the right lower quadrant abscess. The inner stylet was removed. Aspiration of approximately 75 cc of frankly purulent fluid was performed. Patient these catheter was removed. Final CT images demonstrated near complete resolution of the right lower quadrant abscess. Surgical house staff was present during procedure. The patient tolerated the procedure well without any adverse event. The patient was transferred to the floor stable condition. Impression: Successful CT-guided aspiration of right lower quadrant abscess. Approximately 75 cc of frankly purulent fluid was aspirated.
[2017-02-17] MEDS: Potassium Chloride 20 mEq ER Tab PO SCH (11:09)
--- NOTE | 2017-02-17 14:03 | CP.PCM.PN ---
<Krishna Poole H - Last Filed: 02/17/17 19:12> Subjective - Date & Time of Evaluation Date of Evaluation: 02/17/17 Time of Evaluation: 11:00 - Subjective Subjective: Dr. Marvin service: Patient seen and examined during rounds. Patient is reporting that he had no episodes of diarrhea but did have some loose stool. He is saying his pain has improved but that it is still present where the drain was placed. He denies fever, chils, nausea, vomiting, chest pain, palpitations, shortness of breath, cough, dysuria, or lower leg swelling or pain. Objective - Vital Signs/Intake and Output Vital Signs (last 24 hours): Temp Pulse Resp BP Pulse Ox 97.7 F 90 20 110/73 97 02/17/17 07:05 02/17/17 07:05 02/17/17 07:05 02/17/17 07:05 02/17/17 07:05 Intake and Output: 02/17/17 02/17/17 06:59 18:59 Intake Total 1150 Balance 1150 - Medications Medications: Current Medications Acetaminophen (Tylenol 325mg Tab) 650 mg PO Q6 PRN PRN Reason: Fever >100.4 F Last Admin: 02/15/17 19:08 Dose: 650 mg Famotidine (Pepcid) 20 mg IVP DAILY [facility] Last Admin: 02/17/17 11:09 Dose: 20 mg Piperacillin Sod/Tazobactam Sod (Zosyn 3.375 Gm Iv Premix) 50 mls @ 100 mls/hr IVPB Q6H [facility] Last Admin: 02/17/17 13:20 Dose: 100 mls/hr Potassium Chloride/Dextrose/Sod Cl (Potassium Chl 40 Meq In D5-1/2ns) 1,000 mls @ 125 mls/hr IV .Q8H [facility] Last Admin: 02/17/17 10:00 Dose: 125 mls/hr Morphine Sulfate (Morphine) 4 mg IVP Q4H PRN PRN Reason: Pain, severe (8-10) Morphine Sulfate (Morphine) 2 mg IVP Q4 PRN PRN Reason: Pain, moderate (4-7) Last Admin: 02/17/17 04:24 Dose: 2 mg Ondansetron HCl (Zofran Inj) 4 mg IVP Q4 PRN PRN Reason: Nausea/Vomiting Potassium Chloride (K-Dur 20 Meq Er Tab) 40 meq PO DAILY [facility] Last Admin: 02/17/17 11:09 Dose: 40 meq Saccharomyces Boulardii (Florastor) 250 mg PO BID [facility] Last Admin: 02/17/17 09:24 Dose: 250 mg - Labs Labs: 02/17/17 06:30 02/17/17 06:30 PT 19.7 SECONDS (9.7-12.2) H 02/13/17 17:56 INR 1.7 02/13/17 17:56 APTT 30 SECONDS (21-34) 02/13/17 17:56 - Constitutional Appears: No Acute Distress - Head Exam Head Exam: ATRAUMATIC, NORMAL INSPECTION, NORMOCEPHALIC - Eye Exam Eye Exam: Normal appearance Pupil Exam: NORMAL ACCOMODATION - ENT Exam ENT Exam: Normal Exam - Respiratory Exam Respiratory Exam: Clear to Ausculation Bilateral. absent: Rales, Rhonchi, Wheezes - Cardiovascular Exam Cardiovascular Exam: REGULAR RHYTHM, RRR, +S1, +S2. absent: Gallop, Rubs - GI/Abdominal Exam GI & Abdominal Exam: Soft, Tenderness, Normal Bowel Sounds Additional comments: dry clean dressing noted with no evidence of infection, no redness, discharge. - Extremities Exam Extremities Exam: Normal Inspection - Neurological Exam Neurological Exam: Alert - Psychiatric Exam Psychiatric exam: Normal Affect, Normal Mood - Skin Skin Exam: Dry, Pallor Assessment and Plan - Assessment and Plan (Free Text) Assessment: Abdominal Pain - 4 Patient seen and chart reviewed. Spoke with the surgical services asst who said if patient is tolerating diet he is ok to be discharged from surgery point of view , patient on Zosyn 3.75gm q6h, culture shows gram negative rods, follow up on culture sensitivity, follow up on Dr. Lacey's recs. . Previous note Secondary to acute perforated appendix - CT A/P w/ PO/IV (02/13/17): Dilated appendix, free fluid/air adjacent to appendix c/w ruptured acute appendicitis. Small right pleural effusion. Infiltrates/atelectasis in lung bases, most prominent on right. Dilated small bowel loops with air/fluid contrast levels. No transition point appreciated to suggest mechanical obstruction - most likely ileus. (see full report) - Abd xray: no acute perforation. - NPO diet - Surgical consult: Dr. Cherry, help appreciated - Morphine 2mg (moderate), 4mg (severe) IV Q4H PRN for pain - No immediate surgery, will need interval appendectomy - Changed to liquid diet, keep for now - Repeating CT today - f/u - Infectious disease consult, Dr. Lacey: - Recommend Zosyn 3.375 IV Q6H - Flagyl 500mg IV ONCE in ED - Zosyn 3.375 gm IV Q6H - Zofran 4mg IV Q4H - NS @ 150 Sepsis 02/17: Previous note: Febrile yesterday afternoon, afebrile overnight, remains tachycardic - WBC: 14.1 on admission, Tachycardic, Febrile, Tachypnic - Source: perforated appendicitis - Lactic acid: 2.1 -> 1.3 - Procalcitonin - 16 - Blood cx 02/14 - no growth 24 hrs - Urine cx 02/14 - no growth 24 hours - Abx as above Monitor for hypotension -consider ICU if eval if hypotensive Acute anemia - Hgb stable ~10 - secondary to dilution from IVF vs blood loss - Stool occult - negative - Continue to monitor and transfuse if necessary Diarrhea 02/17: Most likey patient is hypokalemic secondary to diarrhea which has been improving, but will continue to replace potassium as needed. Previous Note C diff - f/u - Started florastor - Monitor and replete electrolytes as needed - Continue IVF Hypokalemia - Repleted - Monitor and replete as needed Infiltrate/atelectasis - CT A/P: Infiltrates/atelectasis in lung bases, most prominent on right. - Zosyn 3.375 gm IV Q6H - Incentive spirometer Elevated BUN/Creatinine - resolved - 23/.1 on admission - resolved - Pt dehydrated/anorexic for several days before - Monitor after hydration Fever - Tylenol 325 mg PO Q6h PRN - Given motrin as well Abnormal UA - UA (02/13/17): protein 2+, blood 1+, RBC 6, LE negative, nitrate negative - Pt admits dehydration/anorexia recently Prophylaxis - SCDs - Pepcid 20mg IV daily <Tha Marvin - Last Filed: 02/18/17 13:08> Objective - Vital Signs/Intake and Output Vital Signs (last 24 hours): Temp Pulse Resp BP Pulse Ox 98.6 F 86 20 99/64 L 98 02/18/17 08:03 02/18/17 08:03 02/18/17 08:03 02/18/17 08:03 02/18/17 08:03 Intake and Output: 02/18/17 02/18/17 06:59 18:59 Intake Total 2675 Output Total 1 Balance 2674 - Medications Medications: Current Medications Acetaminophen (Tylenol 325mg Tab) 650 mg PO Q6 PRN PRN Reason: Fever >100.4 F Last Admin: 02/15/17 19:08 Dose: 650 mg Famotidine (Pepcid) 20 mg IVP DAILY [facility] Last Admin: 02/18/17 09:59 Dose: 20 mg Piperacillin Sod/Tazobactam Sod (Zosyn 3.375 Gm Iv Premix) 50 mls @ 100 mls/hr IVPB Q6H [facility] Last Admin: 02/18/17 12:09 Dose: 100 mls/hr Potassium Chloride/Dextrose/Sod Cl (Potassium Chl 40 Meq In D5-1/2ns) 1,000 mls @ 125 mls/hr IV .Q8H [facility] Last Admin: 02/18/17 05:40 Dose: 125 mls/hr Morphine Sulfate (Morphine) 4 mg IVP Q4H PRN PRN Reason: Pain, severe (8-10) Morphine Sulfate (Morphine) 2 mg IVP Q4 PRN PRN Reason: Pain, moderate (4-7) Last Admin: 02/18/17 05:38 Dose: 2 mg Ondansetron HCl (Zofran Inj) 4 mg IVP Q4 PRN PRN Reason: Nausea/Vomiting Potassium Chloride (K-Dur 20 Meq Er Tab) 40 meq PO DAILY [facility] Last Admin: 02/18/17 10:00 Dose: 40 meq Saccharomyces Boulardii (Florastor) 250 mg PO BID [facility] Last Admin: 02/18/17 09:59 Dose: 250 mg - Labs Labs: 02/18/17 06:15 02/18/17 06:15 PT 19.7 SECONDS (9.7-12.2) H 02/13/17 17:56 INR 1.7 02/13/17 17:56 APTT 30 SECONDS (21-34) 03/28/17 17:56 Attending/Attestation - Attestation I have personally seen and examined this patient.: Yes I have fully participated in the care of the patient.: Yes I have reviewed all pertinent clinical information, including history, physical exam and plan: Yes Notes (Text): 02/18/17 13:07 Patient was seen and examined at bedside with the resident Patient is still complaining of diarrhea Abdominal pain is improving Stool is negative for C. difficile We will continue IV antibiotics No plan for surgery Continue to monitor Replace electrolytes as needed Discussed the plan of care with the resident and agree with the above history and physical and assessment/plan by the resident
--- NOTE | 2017-02-18 00:49 | CP.PCM.PN ---
<Keon Harding - Last Filed: 02/18/17 00:46> Subjective - Date & Time of Evaluation Date of Evaluation: 02/18/17 Time of Evaluation: 00:46 - Subjective Subjective: PGY-1 note for medicine service Pt seen and examined at bedside. Pt states that he is having more diarrhea again. He says that he has had at least 5 episodes of loose BMs that exacerbates his abdominal pain. Pt states that the pain feels worse at the moment but the pain medications usually helps. Denies fevers, chills, chest pain , sob, nausea or vomiting. Objective - Vital Signs/Intake and Output Vital Signs (last 24 hours): Temp Pulse Resp BP Pulse Ox 98.8 F 92 H 18 100/65 98 02/17/17 21:08 02/17/17 15:39 02/17/17 15:39 02/17/17 15:39 02/17/17 15:39 Intake and Output: 02/17/17 02/18/17 18:59 06:59 Intake Total 1280 1800 Balance 1280 1800 - Medications Medications: Current Medications Acetaminophen (Tylenol 325mg Tab) 650 mg PO Q6 PRN PRN Reason: Fever >100.4 F Last Admin: 02/15/17 19:08 Dose: 650 mg Famotidine (Pepcid) 20 mg IVP DAILY [facility] Last Admin: 02/17/17 11:09 Dose: 20 mg Piperacillin Sod/Tazobactam Sod (Zosyn 3.375 Gm Iv Premix) 50 mls @ 100 mls/hr IVPB Q6H [facility] Last Admin: 02/17/17 18:30 Dose: 100 mls/hr Potassium Chloride/Dextrose/Sod Cl (Potassium Chl 40 Meq In D5-1/2ns) 1,000 mls @ 125 mls/hr IV .Q8H [facility] Last Admin: 02/17/17 18:30 Dose: 125 mls/hr Morphine Sulfate (Morphine) 4 mg IVP Q4H PRN PRN Reason: Pain, severe (8-10) Morphine Sulfate (Morphine) 2 mg IVP Q4 PRN PRN Reason: Pain, moderate (4-7) Last Admin: 02/17/17 19:44 Dose: 2 mg Ondansetron HCl (Zofran Inj) 4 mg IVP Q4 PRN PRN Reason: Nausea/Vomiting Potassium Chloride (K-Dur 20 Meq Er Tab) 40 meq PO DAILY [facility] Last Admin: 02/17/17 11:09 Dose: 40 meq Saccharomyces Boulardii (Florastor) 250 mg PO BID [facility] Last Admin: 02/17/17 18:30 Dose: 250 mg - Labs Labs: 02/17/17 06:30 02/17/17 06:30 PT 19.7 SECONDS (9.7-12.2) H 02/13/17 17:56 INR 1.7 02/13/17 17:56 APTT 30 SECONDS (21-34) 02/13/17 17:56 - Constitutional Appears: Non-toxic - Head Exam Head Exam: ATRAUMATIC, NORMOCEPHALIC - ENT Exam ENT Exam: Mucous Membranes Moist - Respiratory Exam Respiratory Exam: Clear to Ausculation Bilateral, NORMAL BREATHING PATTERN - Cardiovascular Exam Cardiovascular Exam: +S1, +S2 - GI/Abdominal Exam GI & Abdominal Exam: Soft, Tenderness (over right and left lower quadrants. No sign of hematoma formation at abscess drainage site. ), Normal Bowel Sounds - Neurological Exam Neurological Exam: Alert, Awake - Skin Skin Exam: Dry, Warm Assessment and Plan - Assessment and Plan (Free Text) Assessment: Abdominal Pain - Secondary to acute perforated appendix, complicated by abscess formation - s/ p drainage by IR - fluid culture - gram neg rods - CT A/P w/ PO/IV (02/13/17): Dilated appendix, free fluid/air adjacent to appendix c/w ruptured acute appendicitis. Small right pleural effusion. Infiltrates/atelectasis in lung bases, most prominent on right. Dilated small bowel loops with air/fluid contrast levels. No transition point appreciated to suggest mechanical obstruction - most likely ileus. (see full report) - Abd xray: no acute perforation. - NPO diet - Surgical consult: Dr. Cherry, help appreciated - Morphine 2mg (moderate), 4mg (severe) IV Q4H PRN for pain - No immediate surgery, will need interval appendectomy - Changed to liquid diet, keep for now - Repeating CT - Findings suggestive of rupture appendicitis. Abscess formation seen at the right lower abdomen contains air-fluid level. Moderate wall thickening of the terminal ileum and adjacent cecum likely reactive secondary to adjacent inflammatory process. Small amount of free fluid in the abdomen and pelvis. No evidence of bowel obstruction. - Infectious disease consult, Dr. Lacey: - Continue Zosyn 3.375 IV Q6H - f/u further recs - Flagyl 500mg IV ONCE in ED - Zosyn 3.375 gm IV Q6H - Zofran 4mg IV Q4H - NS @ 150 Sepsis - afebrile - WBC: 14.1 on admission, Tachycardic, Febrile, Tachypnic - Source: perforated appendicitis - Lactic acid: 2.1 -> 1.3 - Procalcitonin - 16 - Blood cx 02/14 - no growth 24 hrs - Urine cx 02/14 - no growth 24 hours - Abx as above Monitor for hypotension -consider ICU if eval if hypotensive Acute anemia - Hgb stable ~10 - secondary to dilution from IVF vs blood loss - Stool occult - negative - Continue to monitor and transfuse if necessary Diarrhea - Most likey patient is hypokalemic secondary to diarrhea which has been improving, but will continue to replace potassium as needed. C diff - negative - Started florastor - Monitor and replete electrolytes as needed - Continue IVF Hypokalemia - Repleted - Monitor and replete as needed Infiltrate/atelectasis - CT A/P: Infiltrates/atelectasis in lung bases, most prominent on right. - Zosyn 3.375 gm IV Q6H - Incentive spirometer Elevated BUN/Creatinine - resolved - 23/1.1 on admission - resolved - Pt dehydrated/anorexic for several days before - Monitor after hydration Fever - Tylenol 325 mg PO Q6h PRN - Given motrin as well Abnormal UA - UA (02/13/17): protein 2+, blood 1+, RBC 6, LE negative, nitrate negative - Pt admits dehydration/anorexia recently Prophylaxis - SCDs - Pepcid 20mg IV daily <Tha Marvin M - Last Filed: 02/18/17 14:12> Objective - Vital Signs/Intake and Output Vital Signs (last 24 hours): Temp Pulse Resp BP Pulse Ox 98.6 F 86 20 99/64 L 98 02/18/17 08:03 02/18/17 08:03 02/18/17 08:03 02/18/17 08:03 02/18/17 08:03 Intake and Output: 02/18/17 02/18/17 06:59 18:59 Intake Total 2675 1280 Output Total 1 Balance 2670 1280 - Medications Medications: Current Medications Acetaminophen (Tylenol 325mg Tab) 650 mg PO Q6 PRN PRN Reason: Fever >100.4 F Last Admin: 02/15/17 19:08 Dose: 650 mg Famotidine (Pepcid) 20 mg IVP DAILY [facility] Last Admin: 02/18/17 09:59 Dose: 20 mg Piperacillin Sod/Tazobactam Sod (Zosyn 3.375 Gm Iv Premix) 50 mls @ 100 mls/hr IVPB Q6H [facility] Last Admin: 02/18/17 12:09 Dose: 100 mls/hr Potassium Chloride/Dextrose/Sod Cl (Potassium Chl 40 Meq In D5-1/2ns) 1,000 mls @ 125 mls/hr IV .Q8H [facility] Last Admin: 02/18/17 05:40 Dose: 125 mls/hr Morphine Sulfate (Morphine) 4 mg IVP Q4H PRN PRN Reason: Pain, severe (8-10) Morphine Sulfate (Morphine) 2 mg IVP Q4 PRN PRN Reason: Pain, moderate (4-7) Last Admin: 02/18/17 05:38 Dose: 2 mg Ondansetron HCl (Zofran Inj) 4 mg IVP Q4 PRN PRN Reason: Nausea/Vomiting Potassium Chloride (K-Dur 20 Meq Er Tab) 40 meq PO DAILY [facility] Last Admin: 02/18/17 10:00 Dose: 40 meq Saccharomyces Boulardii (Florastor) 250 mg PO BID [facility] Last Admin: 02/18/17 09:59 Dose: 250 mg - Labs Labs: 02/18/17 06:15 02/18/17 06:15 PT 19.7 SECONDS (9.7-12.2) H 02/13/17 17:56 INR 1.7 02/13/17 17:56 APTT 30 SECONDS (21-34) 02/13/17 17:56 Attending/Attestation - Attestation I have personally seen and examined this patient.: Yes I have fully participated in the care of the patient.: Yes I have reviewed all pertinent clinical information, including history, physical exam and plan: Yes Notes (Text): 02/18/17 14:11 Patient was seen and examined at bedside with the resident during rounds today The patient is here for perforated appendix and he is being managed conservatively as per surgery recommendations. Patient said that his abdominal pain is improving Diarrhea is also improving. Patient is able to tolerate diet. We will electrolytes noted and potassium is within normal limits today We will continue IV antibiotics Continue conservative management as per recommendations of surgery No plan for immediate surgery Discharge planning likely in the next 24-48 hours if the patient is cleared by surgery.
[2017-02-18] MEDS: Piperacill/Tazo 3.375gm in Dex 50 ML IVPB SCH ×4 (01:00→18:40)
[2017-02-18] MEDS: Potassium Chl 40 mEq in D5-1/2 1,000 ML IV SCH ×2 (05:40→17:36)
[2017-02-18 06:26] LABS: BASO % 0.3 % (0.0-2.0); EOS # 0.1 K/uL (0.0-0.7); EOS % 0.8 % (0.0-4.0); HEMATOCRIT 35.3 % (35.0-51.0); LYMPH # 1.2 K/uL (1.0-4.3); LYMPH % 12.9 % (20.0-40.0); MEAN CELL VOLUME 85.8 fL (80.0-94.0); MEAN CORPUSCULAR HEMOGLOBIN 28.6 pg (27.0-31.0); MEAN CORPUSCULAR HGB CONC 33.4 g/dL (33.0-37.0); MEAN PLATELET VOLUME 7.3 fL (7.2-11.7); MONO % 10.7 % (0.0-10.0); RED CELL DISTRIBUTION WIDTH 13.5 % (11.5-14.5); WHITE BLOOD COUNT 9.3 K/uL (4.8-10.8)
[2017-02-18 07:40] LABS: CHLORIDE 95 mmol/L (98-107); POTASSIUM 3.8 mmol/L (3.6-5.2); SODIUM 136 mmol/L (132-148)
[2017-02-18 07:42] LABS: ALKALINE PHOSPHATASE 62 U/L (38-126); AST/SGOT 26 U/L (17-59); BILIRUBIN,TOTAL 0.4 mg/dL (0.2-1.3); CARBON DIOXIDE 28 mmol/L (22-30); GFR AFRICAN-AMERICAN > 60; TOTAL PROTEIN 6.2 g/dL (6.3-8.3)
[2017-02-18 07:43] LABS: ALT/SGPT 22 U/L (21-72); BLOOD UREA NITROGEN 4 mg/dL (9-20); CALCIUM 8.5 mg/dl (8.6-10.4); GLUCOSE,RANDOM 108 mg/dL (75-110); MAGNESIUM 2.1 mg/dL (1.6-2.3)
[2017-02-18] MEDS: Saccharomyces Boulardi 250 mg Cap PO SCH ×2 (09:59→18:42)
[2017-02-18] MEDS: Potassium Chloride 20 mEq ER Tab PO SCH (10:00)
--- NOTE | 2017-02-18 11:54 | CP.PCM.PN ---
Subjective - Date & Time of Evaluation Date of Evaluation: 02/18/17 Time of Evaluation: 07:15 - Subjective Subjective: General Surgery Pt S&E, NAEO. Pain is improving, had a BM with small amount of blood in it. No Other C/O. Objective - Vital Signs/Intake and Output Vital Signs (last 24 hours): Temp Pulse Resp BP Pulse Ox 98.6 F 86 20 99/64 L 98 02/18/17 08:03 02/18/17 08:03 02/18/17 08:03 02/18/17 08:03 02/18/17 08:03 Intake and Output: 02/18/17 02/18/17 06:59 18:59 Intake Total 2675 Output Total 1 Balance 2674 - Medications Medications: Current Medications Acetaminophen (Tylenol 325mg Tab) 650 mg PO Q6 PRN PRN Reason: Fever >100.4 F Last Admin: 02/15/17 19:08 Dose: 650 mg Famotidine (Pepcid) 20 mg IVP DAILY [facility] Last Admin: 02/18/17 09:59 Dose: 20 mg Piperacillin Sod/Tazobactam Sod (Zosyn 3.375 Gm Iv Premix) 50 mls @ 100 mls/hr IVPB Q6H [facility] Last Admin: 02/18/17 06:13 Dose: 100 mls/hr Potassium Chloride/Dextrose/Sod Cl (Potassium Chl 40 Meq In D5-1/2ns) 1,000 mls @ 125 mls/hr IV .Q8H [facility] Last Admin: 02/18/17 05:40 Dose: 125 mls/hr Morphine Sulfate (Morphine) 4 mg IVP Q4H PRN PRN Reason: Pain, severe (8-10) Morphine Sulfate (Morphine) 2 mg IVP Q4 PRN PRN Reason: Pain, moderate (4-7) Last Admin: 02/18/17 05:38 Dose: 2 mg Ondansetron HCl (Zofran Inj) 4 mg IVP Q4 PRN PRN Reason: Nausea/Vomiting Potassium Chloride (K-Dur 20 Meq Er Tab) 40 meq PO DAILY [facility] Last Admin: 02/18/17 10:00 Dose: 40 meq Saccharomyces Boulardii (Florastor) 250 mg PO BID [facility] Last Admin: 02/18/17 09:59 Dose: 250 mg - Labs Labs: 02/18/17 06:15 02/18/17 06:15 PT 19.7 SECONDS (9.7-12.2) H 02/13/17 17:56 INR 1.7 02/13/17 17:56 APTT 30 SECONDS (21-34) 02/13/17 17:56 - Constitutional Appears: Non-toxic, No Acute Distress - Head Exam Head Exam: ATRAUMATIC, NORMOCEPHALIC - Respiratory Exam Respiratory Exam: NORMAL BREATHING PATTERN. absent: Respiratory Distress - GI/Abdominal Exam GI & Abdominal Exam: Guarding (in RLQ), Soft, Tenderness (in RLQ). absent: Distended, Firm, Rigid, Rebound - Neurological Exam Neurological Exam: Alert, Awake - Skin Skin Exam: Dry, Warm Assessment and Plan - Assessment and Plan (Free Text) Assessment: 31M with perforated appendicitis Plan: Advanced diet to regular. Monitor. Possible DC tomorrow if tolerating diet and he continues to improve D/W Dr. Dilip Pisano PGY3
[2017-02-19] MEDS: Piperacill/Tazo 3.375gm in Dex 50 ML IVPB SCH ×4 (01:01→18:38)
[2017-02-19] MEDS: Potassium Chl 40 mEq in D5-1/2 1,000 ML IV SCH ×4 (05:00→18:39)
[2017-02-19 08:55] LABS: BASO # 0.1 K/uL (0.0-0.2); BASO % 0.5 % (0.0-2.0); EOS # 0.1 K/uL (0.0-0.7); EOS % 0.9 % (0.0-4.0); HEMATOCRIT 35.6 % (35.0-51.0); LYMPH # 1.5 K/uL (1.0-4.3); LYMPH % 12.5 % (20.0-40.0); MEAN CELL VOLUME 85.6 fL (80.0-94.0); MEAN CORPUSCULAR HEMOGLOBIN 27.8 pg (27.0-31.0); MEAN CORPUSCULAR HGB CONC 32.5 g/dL (33.0-37.0); MEAN PLATELET VOLUME 7.1 fL (7.2-11.7); MONO # 1.1 K/uL (0.0-0.8); MONO % 9.5 % (0.0-10.0); RED CELL DISTRIBUTION WIDTH 13.6 % (11.5-14.5); WHITE BLOOD COUNT 11.7 K/uL (4.8-10.8)
[2017-02-19 08:58] LABS: CHLORIDE 95 mmol/L (98-107); POTASSIUM 4.1 mmol/L (3.6-5.2); SODIUM 135 mmol/L (132-148)
[2017-02-19 09:00] LABS: GFR AFRICAN-AMERICAN > 60
[2017-02-19 09:01] LABS: ALB/GLOB RATIO 1.1 (1.0-2.1); ALKALINE PHOSPHATASE 59 U/L (38-126); ALT/SGPT 28 U/L (21-72); AST/SGOT 21 U/L (17-59); BILIRUBIN,TOTAL 0.3 mg/dL (0.2-1.3); BLOOD UREA NITROGEN 6 mg/dL (9-20); CALCIUM 8.4 mg/dl (8.6-10.4); CARBON DIOXIDE 25 mmol/L (22-30); GLUCOSE,RANDOM 110 mg/dL (75-110); TOTAL PROTEIN 6.7 g/dL (6.3-8.3)
[2017-02-19] MEDS: Saccharomyces Boulardi 250 mg Cap PO SCH ×2 (10:20→18:38)
[2017-02-19] MEDS: Potassium Chloride 20 mEq ER Tab PO SCH (10:31)
[2017-02-19] MEDS ORDERED: Enoxaparin 40 mg Syringe SC SCH (11:00)
--- NOTE | 2017-02-19 11:28 | CON ---
DATE: 02/19/2017 LOCATION: 651, bed B. This is a 31-year-old male who was admitted to the hospital due to severe abdominal pain with success ful CAT scan-guided exploration of right lower lobe abscess. The patient had CAT scan of the abdomen and pelvis. Report is seen. No reported active bleeding. The patient is awake, alert, and oriented with leukocytosis of 11.7 and low hemoglobin 11.6 with low BUN and creatinine, and low calcium. IMPRESSION: Intraabdominal intrahepatic abscess formation of unclear etiology. 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 We will follow up only p.r.n. Juani Pettit MD cc: [id number] TT: 02/19/2017 11:27:49 Confirmation # [id number] Dictation # [id number]
--- NOTE | 2017-02-19 11:35 | CP.PCM.PN ---
<Keon Harding - Last Filed: 02/19/17 12:34> Subjective - Date & Time of Evaluation Date of Evaluation: 02/19/17 Time of Evaluation: 11:33 - Subjective Subjective: PGY-1 note for medicine service Pt seen and examined at bedside. Pt reports less pain today. He also only had 2 episodes or diarrhea during the night. Pt does report some bright red blood when he wipes, but nothing significant. Denies any fevers, chills, chest pain, sob, nausea or vomiting. Objective - Vital Signs/Intake and Output Vital Signs (last 24 hours): Temp Pulse Resp BP Pulse Ox 98.4 F 93 H 20 97/61 L 97 02/19/17 07:05 02/19/17 10:08 02/19/17 07:05 02/19/17 10:08 02/19/17 07:05 Intake and Output: 02/19/17 02/19/17 06:59 18:59 Intake Total 2275 Output Total 300 Balance 1975 - Medications Medications: Current Medications Acetaminophen (Tylenol 325mg Tab) 650 mg PO Q6 PRN PRN Reason: Fever >100.4 F Last Admin: 02/15/17 19:08 Dose: 650 mg Enoxaparin Sodium (Lovenox) 40 mg SC DAILY [facility] Famotidine (Pepcid) 20 mg PO DAILY [facility] Last Admin: 02/19/17 10:20 Dose: 20 mg Piperacillin Sod/Tazobactam Sod (Zosyn 3.375 Gm Iv Premix) 50 mls @ 100 mls/hr IVPB Q6H [facility] Last Admin: 02/19/17 06:10 Dose: 100 mls/hr Potassium Chloride/Dextrose/Sod Cl (Potassium Chl 40 Meq In D5-1/2ns) 1,000 mls @ 125 mls/hr IV .Q8H [facility] Last Admin: 02/19/17 09:00 Dose: Not Given Metronidazole (Flagyl) 100 mls @ 100 mls/hr IVPB Q8 [facility] Morphine Sulfate (Morphine) 4 mg IVP Q4H PRN PRN Reason: Pain, severe (8-10) Morphine Sulfate (Morphine) 2 mg IVP Q4 PRN PRN Reason: Pain, moderate (4-7) Last Admin: 02/19/17 10:23 Dose: 2 mg Ondansetron HCl (Zofran Inj) 4 mg IVP Q4 PRN PRN Reason: Nausea/Vomiting Saccharomyces Boulardii (Florastor) 250 mg PO BID [facility] Last Admin: 02/19/17 10:20 Dose: 250 mg - Labs Labs: 02/19/17 08:44 02/19/17 08:44 PT 19.7 SECONDS (9.7-12.2) H 02/13/17 17:56 INR 1.7 02/13/17 17:56 APTT 30 SECONDS (21-34) 02/13/17 17:56 - Constitutional Appears: Non-toxic, No Acute Distress - Head Exam Head Exam: ATRAUMATIC, NORMOCEPHALIC - ENT Exam ENT Exam: Mucous Membranes Moist - Respiratory Exam Respiratory Exam: Clear to Ausculation Bilateral, NORMAL BREATHING PATTERN - Cardiovascular Exam Cardiovascular Exam: +S1, +S2 - GI/Abdominal Exam GI & Abdominal Exam: Soft, Tenderness (RLQ), Normal Bowel Sounds Additional comments: Drainage site clean, no erythema or bruising. Tender to palpation, appropriate - Neurological Exam Neurological Exam: Alert, Awake - Skin Skin Exam: Dry, Warm Assessment and Plan - Assessment and Plan (Free Text) Assessment: Abdominal Pain - Secondary to acute perforated appendix, complicated by abscess formation - s/ p drainage by IR - fluid culture - gram neg rods - CT A/P w/ PO/IV (02/13/17): Dilated appendix, free fluid/air adjacent to appendix c/w ruptured acute appendicitis. Small right pleural effusion. Infiltrates/atelectasis in lung bases, most prominent on right. Dilated small bowel loops with air/fluid contrast levels. No transition point appreciated to suggest mechanical obstruction - most likely ileus. (see full report) - Abd xray: no acute perforation. - NPO diet - Surgical consult: Dr. Cherry, help appreciated - Morphine 2mg (moderate), 4mg (severe) IV Q4H PRN for pain - No immediate surgery, will need interval appendectomy - Changed to liquid diet, keep for now - Repeating CT - Findings suggestive of rupture appendicitis. Abscess formation seen at the right lower abdomen contains air-fluid level. Moderate wall thickening of the terminal ileum and adjacent cecum likely reactive secondary to adjacent inflammatory process. Small amount of free fluid in the abdomen and pelvis. No evidence of bowel obstruction. - Infectious disease consult, Dr. Lacey: - Continue Zosyn 3.375 IV Q6H for 7 days - f/u further recs - Flagyl 500mg IV Q8H - Zosyn 3.375 gm IV Q6H - Zofran 4mg IV Q4H - NS @ 150 Sepsis - afebrile - WBC: 14.1 on admission, Tachycardic, Febrile, Tachypnic - Source: perforated appendicitis - Lactic acid: 2.1 -> 1.3 - Procalcitonin - 16 - Blood cx 02/14 - no growth 24 hrs - Urine cx 02/14 - no growth 24 hours - Abx as above Acute anemia - Resolving - Hgb 11.6 today - secondary to dilution from IVF vs blood loss - Stool occult - negative - Continue to monitor and transfuse if necessary Diarrhea - Most likey patient is hypokalemic secondary to diarrhea which has been improving, but will continue to replace potassium as needed. C diff - negative - Started florastor - Monitor and replete electrolytes as needed - Continue IVF Hypokalemia - Repleted - Monitor and replete as needed Infiltrate/atelectasis - CT A/P: Infiltrates/atelectasis in lung bases, most prominent on right. - Zosyn 3.375 gm IV Q6H - Incentive spirometer Elevated BUN/Creatinine - resolved - 23/1.1 on admission - resolved - Pt dehydrated/anorexic for several days before - Monitor after hydration Fever - Tylenol 325 mg PO Q6h PRN - Given motrin as well Abnormal UA - UA (02/13/17): protein 2+, blood 1+, RBC 6, LE negative, nitrate negative - Pt admits dehydration/anorexia recently Prophylaxis - Lovenox, SCDs - Pepcid 20mg IV daily <Faisal Fang - Last Filed: 03/24/17 17:49> Objective - Vital Signs/Intake and Output Vital Signs (last 24 hours): Temp Pulse Resp BP Pulse Ox 98.1 F 75 18 99/65 L 98 02/20/17 07:05 02/20/17 07:05 02/20/17 07:05 02/20/17 07:05 02/20/17 07:05 - Labs Labs: 02/19/17 08:44 02/19/17 08:44 PT 19.7 SECONDS (9.7-12.2) H 02/13/17 17:56 INR 1.7 02/13/17 17:56 APTT 30 SECONDS (21-34) 02/13/17 17:56 Attending/Attestation - Attestation I have personally seen and examined this patient.: Yes I have fully participated in the care of the patient.: Yes I have reviewed all pertinent clinical information, including history, physical exam and plan: Yes Notes (Text): Patient seen and examined with the resident. Agree with the resident's evaluation, assessment and plan. Abdominal Pain - Secondary to acute perforated appendix, complicated by abscess formation - s/ p drainage by IR - fluid culture - gram neg rods
[2017-02-19] MEDS: metroNIDAZOLE IV 500 mg/100 ml 100 ML IVPB SCH ×2 (14:18→21:53)
--- NOTE | 2017-02-19 17:05 | CP.PCM.PN ---
<Nina Vanegas - Last Filed: 02/19/17 17:00> Subjective - Date & Time of Evaluation Date of Evaluation: 02/19/17 Time of Evaluation: 17:00 - Subjective Subjective: Surgery: Dr. Cherry patient doing well today. Complains of pain located in the RLQ but continues to improved. Does state he had a bowel movement that looked like there might have been blood in it. Fecal occult tests have been negative. Patient continues to say he has been eating red fruits. GI evaluated today, no intervention at this time. Objective - Vital Signs/Intake and Output Vital Signs (last 24 hours): Temp Pulse Resp BP Pulse Ox 97.8 F 95 H 20 105/68 96 02/19/17 15:00 02/19/17 15:00 02/19/17 15:00 02/19/17 15:00 02/19/17 15:00 Intake and Output: 02/19/17 02/19/17 06:59 18:59 Intake Total 2275 1500 Output Total 300 Balance 1975 1500 - Medications Medications: Current Medications Acetaminophen (Tylenol 325mg Tab) 650 mg PO Q6 PRN PRN Reason: Fever >100.4 F Last Admin: 02/15/17 19:08 Dose: 650 mg Enoxaparin Sodium (Lovenox) 40 mg SC DAILY [facility] Famotidine (Pepcid) 20 mg PO DAILY [facility] Last Admin: 02/19/17 10:20 Dose: 20 mg Piperacillin Sod/Tazobactam Sod (Zosyn 3.375 Gm Iv Premix) 50 mls @ 100 mls/hr IVPB Q6H [facility] Last Admin: 02/19/17 12:38 Dose: 100 mls/hr Potassium Chloride/Dextrose/Sod Cl (Potassium Chl 40 Meq In D5-1/2ns) 1,000 mls @ 125 mls/hr IV .Q8H [facility] Last Admin: 02/19/17 14:18 Dose: 125 mls/hr Metronidazole (Flagyl) 100 mls @ 100 mls/hr IVPB Q8 [facility] Last Admin: 02/19/17 14:18 Dose: 100 mls/hr Morphine Sulfate (Morphine) 4 mg IVP Q4H PRN PRN Reason: Pain, severe (8-10) Morphine Sulfate (Morphine) 2 mg IVP Q4 PRN PRN Reason: Pain, moderate (4-7) Last Admin: 02/19/17 15:23 Dose: 2 mg Ondansetron HCl (Zofran Inj) 4 mg IVP Q4 PRN PRN Reason: Nausea/Vomiting Saccharomyces Boulardii (Florastor) 250 mg PO BID [facility] Last Admin: 02/19/17 10:20 Dose: 250 mg - Labs Labs: 02/19/17 08:44 02/19/17 08:44 PT 19.7 SECONDS (9.7-12.2) H 02/13/17 17:56 INR 1.7 02/13/17 17:56 APTT 30 SECONDS (21-34) 02/13/17 17:56 - Constitutional Appears: Non-toxic, No Acute Distress - Head Exam Head Exam: ATRAUMATIC, NORMOCEPHALIC - Eye Exam Eye Exam: EOMI, Normal appearance - ENT Exam ENT Exam: Mucous Membranes Moist Additional comments: red coloring - Respiratory Exam Respiratory Exam: NORMAL BREATHING PATTERN. absent: Respiratory Distress - Cardiovascular Exam Cardiovascular Exam: REGULAR RHYTHM. absent: Tachycardia - GI/Abdominal Exam GI & Abdominal Exam: Soft, Tenderness (RLQ). absent: Guarding, Rigid, Rebound Assessment and Plan - Assessment and Plan (Free Text) Assessment: 31 y/o male w/ perforated appendicitis, improving s/p IR drainage of abscess Plan: -cont IV abx per ID -if no GI intervention, patient ok for d/c from surgical standpoint -upon d/c patient will need po antibiotics, levaquin and flagyl x 10 days -f/u labs -encourage OOB and IS use -pain control -further recs per Dr. Cherry AKWhite PGY1 <Chris Cherry B - Last Filed: 02/20/17 16:15> Objective - Vital Signs/Intake and Output Vital Signs (last 24 hours): Temp Pulse Resp BP Pulse Ox 98.1 F 75 18 99/65 L 98 02/20/17 07:05 02/20/17 07:05 02/20/17 07:05 02/20/17 07:05 02/20/17 07:05 Intake and Output: 02/20/17 02/20/17 06:59 18:59 Output Total 550 Balance -550 - Labs Labs: 02/19/17 08:44 02/19/17 08:44 PT 19.7 SECONDS (9.7-12.2) H 02/13/17 17:56 INR 1.7 02/13/17 17:56 APTT 30 SECONDS (21-34) 02/13/17 17:56 Attending/Attestation - Attestation I have personally seen and examined this patient.: Yes I have fully participated in the care of the patient.: Yes I have reviewed all pertinent clinical information, including history, physical exam and plan: Yes Notes (Text): 02/20/17 16:14 Pt was seen and examined at bedside on 02/19/17 Agree with above note and assessment. GI consult c.w IV antibiotics Plan d.w pt in detail.
[2017-02-20] MEDS: Piperacill/Tazo 3.375gm in Dex 50 ML IVPB SCH ×3 (00:30→12:47)
[2017-02-20] MEDS: Potassium Chl 40 mEq in D5-1/2 1,000 ML IV SCH (01:50)
[2017-02-20 02:19] VITALS: TEMP 98.1
[2017-02-20] MEDS: metroNIDAZOLE IV 500 mg/100 ml 100 ML IVPB SCH (05:50)
[2017-02-20 08:21] VITALS: BP 99/65; PULSE 75; RESP 18; O2SAT 98
--- NOTE | 2017-02-20 08:24 | CP.PCM.PN ---
<Nina Vanegas - Last Filed: 02/20/17 08:24> Subjective - Date & Time of Evaluation Date of Evaluation: 02/20/17 Time of Evaluation: 08:21 - Subjective Subjective: Surgery: Dr. Cherry Patient doing well today. Pain controlled and less each day. Denies f/c/n/v. Reports bowel movement becoming more solid. Reports being OOB. Objective - Vital Signs/Intake and Output Vital Signs (last 24 hours): Temp Pulse Resp BP Pulse Ox 98.1 F 101 H 20 111/72 95 02/20/17 00:15 02/20/17 00:15 02/20/17 00:15 02/20/17 00:15 02/20/17 00:15 Intake and Output: 02/20/17 02/20/17 06:59 18:59 Output Total 550 Balance -550 - Medications Medications: Current Medications Acetaminophen (Tylenol 325mg Tab) 650 mg PO Q6 PRN PRN Reason: Fever >100.4 F Last Admin: 02/15/17 19:08 Dose: 650 mg Enoxaparin Sodium (Lovenox) 40 mg SC DAILY [facility] Famotidine (Pepcid) 20 mg PO DAILY [facility] Last Admin: 02/19/17 10:20 Dose: 20 mg Piperacillin Sod/Tazobactam Sod (Zosyn 3.375 Gm Iv Premix) 50 mls @ 100 mls/hr IVPB Q6H [facility] Last Admin: 02/20/17 07:00 Dose: 100 mls/hr Potassium Chloride/Dextrose/Sod Cl (Potassium Chl 40 Meq In D5-1/2ns) 1,000 mls @ 125 mls/hr IV .Q8H [facility] Last Admin: 02/20/17 01:50 Dose: 125 mls/hr Metronidazole (Flagyl) 100 mls @ 100 mls/hr IVPB Q8 [facility] Last Admin: 02/20/17 05:50 Dose: 100 mls/hr Morphine Sulfate (Morphine) 4 mg IVP Q4H PRN PRN Reason: Pain, severe (8-10) Morphine Sulfate (Morphine) 2 mg IVP Q4 PRN PRN Reason: Pain, moderate (4-7) Last Admin: 02/19/17 21:51 Dose: 2 mg Ondansetron HCl (Zofran Inj) 4 mg IVP Q4 PRN PRN Reason: Nausea/Vomiting Saccharomyces Echo (Florastor) 250 mg PO BID [facility] Last Admin: 02/19/17 18:38 Dose: 250 mg - Labs Labs: 02/19/17 08:44 02/19/17 08:44 PT 19.7 SECONDS (9.7-12.2) H 02/13/17 17:56 INR 1.7 02/13/17 17:56 APTT 30 SECONDS (21-34) 02/13/17 17:56 - Constitutional Appears: Non-toxic, No Acute Distress - Head Exam Head Exam: ATRAUMATIC, NORMOCEPHALIC - Eye Exam Eye Exam: EOMI, Normal appearance - ENT Exam ENT Exam: Mucous Membranes Moist - Respiratory Exam Respiratory Exam: NORMAL BREATHING PATTERN. absent: Respiratory Distress - Cardiovascular Exam Cardiovascular Exam: REGULAR RHYTHM. absent: Tachycardia - GI/Abdominal Exam GI & Abdominal Exam: Soft, Tenderness (mild in RLQ). absent: Guarding, Rigid, Rebound - Extremities Exam Extremities Exam: Normal Inspection. absent: Calf Tenderness Assessment and Plan - Assessment and Plan (Free Text) Assessment: 31 y/o male w/ perforated appendicitis s/p IR drainage of abscess Plan: -patient cleared for d/c from surgical standpoint -d/c on po antibiotics for 10 days, levaquin and flagyl -f/u w/ Dr. Cherry in 2 weeks -tylenol/motrin for pain -will need possible repeat CT scan as outpatient once acute process resolves -further recs per Dr. Cherry AKWhite PGY1 <Chris Cherry - Last Filed: 02/20/17 16:19> Objective - Vital Signs/Intake and Output Vital Signs (last 24 hours): Temp Pulse Resp BP Pulse Ox 98.1 F 75 18 99/65 L 98 02/20/17 07:05 02/20/17 07:05 02/20/17 07:05 02/20/17 07:05 02/20/17 07:05 Intake and Output: 02/20/17 02/20/17 06:59 18:59 Output Total 550 Balance -550 - Labs Labs: 02/19/17 08:44 02/19/17 08:44 PT 19.7 SECONDS (9.7-12.2) H 02/13/17 17:56 INR 1.7 02/13/17 17:56 APTT 30 SECONDS (21-34) 02/13/17 17:56 Attending/Attestation - Attestation I have personally seen and examined this patient.: Yes I have fully participated in the care of the patient.: Yes I have reviewed all pertinent clinical information, including history, physical exam and plan: Yes Notes (Text): 02/20/17 16:19 Pt was seen and examined at bedside on 02/20/17 Agree with above note and assessment. C/w current mx Pt can be DC home with Po antibiotics Plan d.w pt in detail.
[2017-02-20] MEDS: Saccharomyces Boulardi 250 mg Cap PO SCH (10:58)
--- NOTE | 2017-02-20 12:11 | CP.PCM.PN ---
Subjective - Date & Time of Evaluation Date of Evaluation: 02/20/17 Time of Evaluation: 09:00 - Subjective Subjective: wound + E Coli possible d/c on po keflex or augmantin for 10 days with surgical follow up Objective - Vital Signs/Intake and Output Vital Signs (last 24 hours): Temp Pulse Resp BP Pulse Ox 98.1 F 75 18 99/65 L 98 02/20/17 07:05 02/20/17 07:05 02/20/17 07:05 02/20/17 07:05 02/20/17 07:05 Intake and Output: 02/20/17 02/20/17 06:59 18:59 Output Total 550 Balance -550 - Medications Medications: Current Medications Acetaminophen (Tylenol 325mg Tab) 650 mg PO Q6 PRN PRN Reason: Fever >100.4 F Last Admin: 02/15/17 19:08 Dose: 650 mg Enoxaparin Sodium (Lovenox) 40 mg SC DAILY [facility] Famotidine (Pepcid) 20 mg PO DAILY [facility] Last Admin: 02/20/17 10:58 Dose: 20 mg Piperacillin Sod/Tazobactam Sod (Zosyn 3.375 Gm Iv Premix) 50 mls @ 100 mls/hr IVPB Q6H [facility] Last Admin: 02/20/17 07:00 Dose: 100 mls/hr Metronidazole (Flagyl) 100 mls @ 100 mls/hr IVPB Q8 [facility] Last Admin: 02/20/17 05:50 Dose: 100 mls/hr Ondansetron HCl (Zofran Inj) 4 mg IVP Q4 PRN PRN Reason: Nausea/Vomiting Saccharomyces Boulardii (Florastor) 250 mg PO BID [facility] Last Admin: 02/20/17 10:58 Dose: 250 mg - Labs Labs: 02/19/17 08:44 02/19/17 08:44 PT 19.7 SECONDS (9.7-12.2) H 02/13/17 17:56 INR 1.7 02/13/17 17:56 APTT 30 SECONDS (21-34) 02/13/17 17:56 Assessment and Plan (1) Acute appendicitis with rupture Status: Acute
--- NOTE | 2017-02-20 12:52 | CP.PCM.DIS ---
<Kelly Kirkland - Last Filed: 02/20/17 12:53> Provider - Provider Date of Admission: 02/13/17 21:19 Attending physician: Tha Marvin MD Primary care physician: None Consults: ID-Deepthi Huynh-Dilip CANTU-Wilver RODRIGUES- Toan Time Spent in preparation of Discharge (in minutes): 60 Hospital Course - Lab Results Lab Results: Micro Results 02/14/17 03:45 Blood-Venous Blood Culture - Final NO GROWTH AFTER 5 DAYS 02/14/17 03:45 Blood-Venous Gram Stain - Final TEST NOT PERFORMED 02/14/17 03:05 Blood-Venous Blood Culture - Final NO GROWTH AFTER 5 DAYS 02/14/17 03:05 Blood-Venous Gram Stain - Final TEST NOT PERFORMED 02/16/17 Unknown Body Fluid - Abscess Gram Stain - Final 02/16/17 Unknown Body Fluid - Abscess Body Fluid Culture - Final Escherichia Coli 02/14/17 Unknown Urine,Clean Catch Urine Culture - Final No Growth (<1,000 CFU/ML) Most Recent Lab Values WBC 11.7 K/uL (4.8-10.8) H 02/19/17 08:44 RBC 4.16 Mil/uL (4.40-5.90) L 02/19/17 08:44 Hgb 11.6 g/dL (12.0-18.0) L 02/19/17 08:44 Hct 35.6 % (35.0-51.0) 02/19/17 08:44 MCV 85.6 fL (80.0-94.0) 02/19/17 08:44 MCH 27.8 pg (27.0-31.0) 02/19/17 08:44 MCHC 32.5 g/dL (33.0-37.0) L 02/19/17 08:44 RDW 13.6 % (11.5-14.5) 02/19/17 08:44 Plt Count 399 K/uL (130-400) 02/19/17 08:44 MPV 7.1 fL (7.2-11.7) L 02/19/17 08:44 Neut % (Auto) 76.6 % (50.0-75.0) H 02/19/17 08:44 Lymph % (Auto) 12.5 % (20.0-40.0) L 02/19/17 08:44 [place] % (Auto) 9.5 % (0.0-10.0) 02/19/17 08:44 Eos % (Auto) 0.9 % (0.0-4.0) 02/19/17 08:44 Baso % (Auto) 0.5 % (0.0-2.0) 02/19/17 08:44 Neut # 8.9 K/uL (1.8-7.0) H 02/19/17 08:44 Lymph # 1.5 K/uL (1.0-4.3) 02/19/17 08:44 [place] # 1.1 K/uL (0.0-0.8) H 02/19/17 08:44 Eos # 0.1 K/uL (0.0-0.7) 02/19/17 08:44 Baso # 0.1 K/uL (0.0-0.2) 02/19/17 08:44 Neutrophils % (Manual) 73 % (50-75) 02/16/17 05:58 Band Neutrophils % 7 % (0-2) H 02/16/17 05:58 Lymphocytes % (Manual) 11 % (20-40) L 02/16/17 05:58 Monocytes % (Manual) 9 % (0-10) 02/16/17 05:58 Basophils % (Manual) 1 % (0-2) 02/13/17 17:51 Metamyelocytes % 6 % (0-0) H 02/13/17 17:51 Myelocytes % 2 % (0-0) H 02/13/17 17:51 Toxic Granulation Present 02/16/17 05:58 Platelet Estimate Normal (NORMAL) 02/16/17 05:58 Hypochromasia (manual) Slight 02/16/17 05:58 Poikilocytosis (manual Slight 02/16/17 05:58 Anisocytosis (manual) Slight 02/16/17 05:58 Ovalocytes Slight 02/16/17 05:58 PT 19.7 SECONDS (9.7-12.2) H 02/13/17 17:56 INR 1.7 02/13/17 17:56 APTT 30 SECONDS (21-34) 02/13/17 17:56 pO2 29 mm/Hg (30-55) L 02/13/17 17:45 VBG pH 7.36 (7.32-7.43) 02/13/17 17:45 VBG pCO2 49 mmHg (40-60) 02/13/17 17:45 VBG HCO3 24.9 mmol/L 02/13/17 17:45 VBG Total CO2 29.2 mmol/L (22-28) H 02/13/17 17:45 VBG O2 Sat (Calc) 57.8 % (40-65) 02/13/17 17:45 VBG Base Excess 1.5 mmol/L (0.0-2.0) 02/13/17 17:45 VBG Potassium 3.8 mmol/L (3.6-5.2) 02/13/17 17:45 Sodium 131.0 mmol/l (132-148) L 02/13/17 17:45 Chloride 100.0 mmol/L (98-107) 02/13/17 17:45 Glucose 136 mg/dl (75-110) H 02/13/17 17:45 Lactate 2.1 mmol/L (0.7-2.1) 02/13/17 17:45 FiO2 21.0 % 02/13/17 17:45 Sodium 135 mmol/L (132-148) 02/19/17 08:44 Potassium 4.1 mmol/L (3.6-5.2) 02/19/17 08:44 Chloride 95 mmol/L (98-107) L 02/19/17 08:44 Carbon Dioxide 25 mmol/L (22-30) 02/19/17 08:44 Anion Gap 19 (10-20) 02/19/17 08:44 BUN 6 mg/dL (9-20) L 02/19/17 08:44 Creatinine 0.6 MG/DL (0.8-1.5) L 02/19/17 08:44 Est GFR ( Amer) > 60 02/19/17 08:44 Est GFR (Non-Af Amer) > 60 02/19/17 08:44 Random Glucose 110 mg/dL (75-110) 02/19/17 08:44 Lactic Acid 1.3 mmol/L (0.7-2.1) 02/14/17 06:12 Calcium 8.4 mg/dl (8.6-10.4) L 02/19/17 08:44 Phosphorus 3.0 mg/dL (2.5-4.5) 02/18/17 06:15 Magnesium 2.1 mg/dL (1.6-2.3) 02/18/17 06:15 Total Bilirubin 0.3 mg/dL (0.2-1.3) 02/19/17 08:44 AST 21 U/L (17-59) 02/19/17 08:44 ALT 28 U/L (21-72) 02/19/17 08:44 Alkaline Phosphatase 59 U/L (38-126) 02/19/17 08:44 Total Protein 6.7 g/dL (6.3-8.3) 02/19/17 08:44 Albumin 3.5 g/dL (3.5-5.0) 02/19/17 08:44 Globulin 3.2 gm/dL (2.2-3.9) 02/19/17 08:44 Albumin/Globulin Ratio 1.1 (1.0-2.1) 02/19/17 08:44 Lipase < 10 U/L (23-300) L 02/13/17 17:50 Procalcitonin 16.00 NG/ML (0.19-0.49) H 02/14/17 Unknown Venous Blood Potassium 3.8 mmol/L (3.6-5.2) 02/13/17 17:45 Urine Color Yellow (YELLOW) 02/14/17 07:19 Urine Clarity Clear (Clear) 02/14/17 07:19 Urine pH 5.0 (5.0-8.0) 02/14/17 07:19 Ur Specific [place] 1.024 (1.003-1.030) 02/14/17 07:19 Urine Protein 1+ mg/dL (NEGATIVE) H 02/14/17 07:19 Urine Glucose (UA) Normal mg/dL (Normal) 02/14/17 07:19 Urine Ketones Trace mg/dL (NEGATIVE) 02/14/17 07:19 Urine Blood 1+ (NEGATIVE) H 02/14/17 07:19 Urine Nitrate Negative (NEGATIVE) 02/14/17 07:19 Urine Bilirubin Negative (NEGATIVE) 02/14/17 07:19 Urine Urobilinogen Normal mg/dL (0.2-1.0) 02/14/17 07:19 Ur Leukocyte Esterase Neg Mark/uL (Negative) 02/14/17 07:19 Urine WBC (Auto) 3 /hpf (0-5) 02/14/17 07:19 Urine RBC (Auto) 3 /hpf (0-3) 02/14/17 07:19 Ur Squamous Epith Cells 1 /hpf (0-5) 02/13/17 18:41 Urine Bacteria Rare (<OCC) 02/14/17 07:19 Stool Occult Blood Negative (NEGATIVE) 02/15/17 15:25 C. difficile Ag & Toxin Negative (NEGATIVE) 02/16/17 Unknown Blood Type A NEGATIVE 02/13/17 18:00 Antibody Screen Negative 02/13/17 18:00 - Hospital Course Hospital Course: 31 year old Nepali male, who denies PMHx, who was sent up to the ED by his PMD for abdominal pain. He states that the abdominal pain started this past Sunday in the evening. Patient describes the pain as a "constant aching, with occasional knife-like stabs of pain" located "all over his abdomen" but worst in the RLQ, with no radiation to the back. He states the pain began as a mild 2- 3/10 on Sunday, but by this morning was a 10/10 on the pain scale. He report one episode of non-bilious, non-bloody vomiting on Sunday, but denies any subsequent episodes despite constant nausea. Pt denies wanting to eat because it worsens his pain, and admits having eaten only a banana and water for the past two days. He admits subjective fever and chills that began Sunday. He states he had one episode non-bloody diarrhea today. He denies previous symptoms. He denies chest pain, palpitations, shortness of breath, headache, dysuria, or constipation. Pt admitted with sepsis treatment initiated. ID saw/evaluated patient with antibiotic recommendations. Surgery saw/evaluated pt with suggestion for interval appendectomy. RLQ abscess was drained by IR. Lab abnormalities resolved over course of hospitalization. Pt stable and ready for discharge as per surgery and Dr. Killian on Flagyl and Levaquin for 10 days. Diagnoses: ruptured appendix, appendiceal abscess, sepsis, electrolyte imbalances, atelectasis, acute anemia-resolved, Acute kidney injury, atelectasis Please see EMR for full details of hospitalization. - Date & Time of H&P Date of H&P: 02/13/17 Time of H&P: 22:40 Discharge Exam - Head Exam Head Exam: ATRAUMATIC, NORMAL INSPECTION, NORMOCEPHALIC - Eye Exam Eye Exam: EOMI, Normal appearance, PERRL Pupil Exam: NORMAL ACCOMODATION, PERRL - ENT Exam ENT Exam: Mucous Membranes Moist, Normal Exam - Neck Exam Neck exam: Full Rom, Normal Inspection - Respiratory Exam Respiratory Exam: Clear to PA & Lateral, NORMAL BREATHING PATTERN, UNREMARKABLE - Cardiovascular Exam Cardiovascular Exam: REGULAR RHYTHM, +S1, +S2 - GI/Abdominal Exam GI & Abdominal Exam: Normal Bowel Sounds, Soft, Tenderness (mild, RLQ). absent : Diminished Bowel Sounds, Distended, Firm, Guarding, Rebound, Rigid - Extremities Exam Extremities exam: full ROM, normal inspection - Back Exam Back exam: FULL ROM, NORMAL INSPECTION - Neurological Exam Neurological exam: Alert, CN II-XII Intact, Oriented x3 - Psychiatric Exam Psychiatric exam: Normal Affect, Normal Mood - Skin Skin Exam: Dry, Intact, Normal Color, Warm Discharge Plan - Discharge Medications Prescriptions: Metronidazole [Flagyl] 500 mg PO Q8H #30 tablet levoFLOXacin [Levaquin] 750 mg PO DAILY #10 tab - Follow Up Plan Condition: STABLE Disposition: HOME/ ROUTINE Instructions: Metronidazole (By mouth), Levofloxacin (By mouth), Appendicitis ( DC) Additional Instructions: Patient cleared for discharge as per Dr. Fang and Dr. Cherry. You are being discharged on 2 different prescriptions. Please take your antibiotics as written. Please follow up with Dr. Cherry in 2 weeks after discharge from hospital for surgical follow up. If you start having fevers or a recurrence of symptoms, please return to hospital. Referrals: Chris Cherry MD [Staff Provider] - <Faisal Fang - Last Filed: 03/27/17 12:27> Provider - Provider Date of Admission: 02/13/17 21:19 Attending physician: Tha Marvin MD Hospital Course - Lab Results Lab Results: Micro Results 02/14/17 03:45 Blood-Venous Blood Culture - Final NO GROWTH AFTER 5 DAYS 02/14/17 03:45 Blood-Venous Gram Stain - Final TEST NOT PERFORMED 02/14/17 03:05 Blood-Venous Blood Culture - Final NO GROWTH AFTER 5 DAYS 02/14/17 03:05 Blood-Venous Gram Stain - Final TEST NOT PERFORMED 02/16/17 Unknown Body Fluid - Abscess Gram Stain - Final 02/16/17 Unknown Body Fluid - Abscess Body Fluid Culture - Final Escherichia Coli 02/14/17 Unknown Urine,Clean Catch Urine Culture - Final No Growth (<1,000 CFU/ML) Most Recent Lab Values WBC 11.7 K/uL (4.8-10.8) H 02/19/17 08:44 RBC 4.16 Mil/uL (4.40-5.90) L 02/19/17 08:44 Hgb 11.6 g/dL (12.0-18.0) L 02/19/17 08:44 Hct 35.6 % (35.0-51.0) 02/19/17 08:44 MCV 85.6 fL (80.0-94.0) 02/19/17 08:44 MCH 27.8 pg (27.0-31.0) 02/19/17 08:44 MCHC 32.5 g/dL (33.0-37.0) L 02/19/17 08:44 RDW 13.6 % (11.5-14.5) 02/19/17 08:44 Plt Count 399 K/uL (130-400) 02/19/17 08:44 MPV 7.1 fL (7.2-11.7) L 02/19/17 08:44 Neut % (Auto) 76.6 % (50.0-75.0) H 02/19/17 08:44 Lymph % (Auto) 12.5 % (20.0-40.0) L 02/19/17 08:44 [place] % (Auto) 9.5 % (0.0-10.0) 02/19/17 08:44 Eos % (Auto) 0.9 % (0.0-4.0) 02/19/17 08:44 Baso % (Auto) 0.5 % (0.0-2.0) 02/19/17 08:44 Neut # 8.9 K/uL (1.8-7.0) H 02/19/17 08:44 Lymph # 1.5 K/uL (1.0-4.3) 02/19/17 08:44 [place] # 1.1 K/uL (0.0-0.8) H 02/19/17 08:44 Eos # 0.1 K/uL (0.0-0.7) 02/19/17 08:44 Baso # 0.1 K/uL (0.0-0.2) 02/19/17 08:44 Neutrophils % (Manual) 73 % (50-75) 02/16/17 05:58 Band Neutrophils % 7 % (0-2) H 02/16/17 05:58 Lymphocytes % (Manual) 11 % (20-40) L 02/16/17 05:58 Monocytes % (Manual) 9 % (0-10) 02/16/17 05:58 Basophils % (Manual) 1 % (0-2) 02/13/17 17:51 Metamyelocytes % 6 % (0-0) H 02/13/17 17:51 Myelocytes % 2 % (0-0) H 02/13/17 17:51 Toxic Granulation Present 02/16/17 05:58 Platelet Estimate Normal (NORMAL) 02/16/17 05:58 Hypochromasia (manual) Slight 02/16/17 05:58 Poikilocytosis (manual Slight 02/16/17 05:58 Anisocytosis (manual) Slight 02/16/17 05:58 Ovalocytes Slight 02/16/17 05:58 PT 19.7 SECONDS (9.7-12.2) H 02/13/17 17:56 INR 1.7 02/13/17 17:56 APTT 30 SECONDS (21-34) 02/13/17 17:56 pO2 29 mm/Hg (30-55) L 02/13/17 17:45 VBG pH 7.36 (7.32-7.43) 02/13/17 17:45 VBG pCO2 49 mmHg (40-60) 02/13/17 17:45 VBG HCO3 24.9 mmol/L 02/13/17 17:45 VBG Total CO2 29.2 mmol/L (22-28) H 02/13/17 17:45 VBG O2 Sat (Calc) 57.8 % (40-65) 02/13/17 17:45 VBG Base Excess 1.5 mmol/L (0.0-2.0) 02/13/17 17:45 VBG Potassium 3.8 mmol/L (3.6-5.2) 02/13/17 17:45 Sodium 131.0 mmol/l (132-148) L 02/13/17 17:45 Chloride 100.0 mmol/L (98-107) 02/13/17 17:45 Glucose 136 mg/dl (75-110) H 02/13/17 17:45 Lactate 2.1 mmol/L (0.7-2.1) 02/13/17 17:45 FiO2 21.0 % 02/13/17 17:45 Sodium 135 mmol/L (132-148) 02/19/17 08:44 Potassium 4.1 mmol/L (3.6-5.2) 02/19/17 08:44 Chloride 95 mmol/L (98-107) L 02/19/17 08:44 Carbon Dioxide 25 mmol/L (22-30) 02/19/17 08:44 Anion Gap 19 (10-20) 02/19/17 08:44 BUN 6 mg/dL (9-20) L 02/19/17 08:44 Creatinine 0.6 MG/DL (0.8-1.5) L 02/19/17 08:44 Est GFR ( Amer) > 60 02/19/17 08:44 Est GFR (Non-Af Amer) > 60 02/19/17 08:44 Random Glucose 110 mg/dL (75-110) 02/19/17 08:44 Lactic Acid 1.3 mmol/L (0.7-2.1) 02/14/17 06:12 Calcium 8.4 mg/dl (8.6-10.4) L 02/19/17 08:44 Phosphorus 3.0 mg/dL (2.5-4.5) 02/18/17 06:15 Magnesium 2.1 mg/dL (1.6-2.3) 02/18/17 06:15 Total Bilirubin 0.3 mg/dL (0.2-1.3) 02/19/17 08:44 AST 21 U/L (17-59) 02/19/17 08:44 ALT 28 U/L (21-72) 02/19/17 08:44 Alkaline Phosphatase 59 U/L (38-126) 02/19/17 08:44 Total Protein 6.7 g/dL (6.3-8.3) 02/19/17 08:44 Albumin 3.5 g/dL (3.5-5.0) 02/19/17 08:44 Globulin 3.2 gm/dL (2.2-3.9) 02/19/17 08:44 Albumin/Globulin Ratio 1.1 (1.0-2.1) 02/19/17 08:44 Lipase < 10 U/L (23-300) L 02/13/17 17:50 Procalcitonin 16.00 NG/ML (0.19-0.49) H 02/14/17 Unknown Venous Blood Potassium 3.8 mmol/L (3.6-5.2) 02/13/17 17:45 Urine Color Yellow (YELLOW) 02/14/17 07:19 Urine Clarity Clear (Clear) 02/14/17 07:19 Urine pH 5.0 (5.0-8.0) 02/14/17 07:19 Ur Specific [place] 1.024 (1.003-1.030) 02/14/17 07:19 Urine Protein 1+ mg/dL (NEGATIVE) H 02/14/17 07:19 Urine Glucose (UA) Normal mg/dL (Normal) 02/14/17 07:19 Urine Ketones Trace mg/dL (NEGATIVE) 02/14/17 07:19 Urine Blood 1+ (NEGATIVE) H 02/14/17 07:19 Urine Nitrate Negative (NEGATIVE) 02/14/17 07:19 Urine Bilirubin Negative (NEGATIVE) 02/14/17 07:19 Urine Urobilinogen Normal mg/dL (0.2-1.0) 02/14/17 07:19 Ur Leukocyte Esterase Neg Mark/uL (Negative) 02/14/17 07:19 Urine WBC (Auto) 3 /hpf (0-5) 02/14/17 07:19 Urine RBC (Auto) 3 /hpf (0-3) 02/14/17 07:19 Ur Squamous Epith Cells 1 /hpf (0-5) 02/13/17 18:41 Urine Bacteria Rare (<OCC) 02/14/17 07:19 Stool Occult Blood Negative (NEGATIVE) 02/15/17 15:25 C. difficile Ag & Toxin Negative (NEGATIVE) 02/16/17 Unknown Blood Type A NEGATIVE 02/13/17 18:00 Antibody Screen Negative 02/13/17 18:00 Attending/Attestation - Attestation I have personally seen and examined this patient.: Yes I have fully participated in the care of the patient.: Yes I have reviewed all pertinent clinical information, including history, physical exam and plan: Yes Notes (Text): Patient seen and examined with the resident. Agree with the resident's evaluation, assessment and plan. Diagnoses: ruptured appendix, appendiceal abscess, sepsis, electrolyte imbalances, atelectasis, acute anemia-resolved, Acute kidney injury, atelectasis
--- NOTE | 2017-02-22 14:13 | CARD ---
APPROVED REPORT EKG Measurement Heart [id number] <Conclusion> Sinus tachycardia Possible Left atrial enlargement Incomplete right bundle branch block Borderline ECG
== END 2017-02-20 15:00 | disposition home or self-care (01) | DRG 552 ==
LOC: C.ER 16:19 → C.9E 21:19 → C.3T 22:11 → C.6T 02-14 01:27
PROVIDERS: ADMIT Family Medicine; ATTEND Internal Medicine
PROC: 0W9G3ZZ Drainage of Peritoneal Cavity, Percutaneous Approach (ICD-10-PCS; principal; 2017-02-16)
DX: K35.2 Acute appendicitis with generalized peritonitis (principal); N17.9 Acute kidney failure, unspecified; J98.11 Atelectasis; D62 Acute posthemorrhagic anemia; E86.0 Dehydration; E87.6 Hypokalemia; Z68.22 Body mass index [BMI] 22.0-22.9, adult